=== PATIENT | male | born 1975 | race Caucasian/White ===

== ENCOUNTER 2021-12-11 12:57 | Day surgery (SDC) | payer OTHER, SELFPAY ==
[2021-11-08 09:47] VITALS: BMI 31.9
[2021-11-21 13:16] VITALS: BMI 31.9
[2021-12-11 13:15] VITALS: BP 137/103; PULSE 73; RESP 20; TEMP 36.7; O2SAT 100
[2021-12-11 13:24] VITALS: BMI 31.4
[2021-12-11] MEDS: LACTATED RINGERS 1,000 ML 150 ML IV CONT (13:33)
--- NOTE | 2021-12-11 13:44 | P.PNAN_ITS ---
Anes - Initial Pre Proc Eval Procedure: Operation Date: 12/11/21 14:30 Proposed Procedures p Diagnostic Colonoscopy - Trey Patten MD Date/Time: 12/11/21 13:44 Surgeon: Trey Patten MD Pre Op Diagnosis: Positive Cologard Patient Data Age: 46 Gender: M Height: 1.88 m Weight: 111 kg Last Vital Signs Temp 36.7 C 12/11/21 13:15 Pulse 73 12/11/21 13:15 Resp 20 12/11/21 13:15 BP 137/103 H 12/11/21 13:15 Pulse Ox 100 12/11/21 13:15 O2 Del Method Room Air 12/11/21 13:15 Allergies Allergy/AdvReac Type Severity Reaction Status Date / Time Sulfa (Sulfonamide Allergy Unknown Verified 12/11/21 13:22 Antibiotics) Home Medications Medication Instructions Recorded Confirmed Type sodium,potassium,mag sulfates 17.5 See Rx Instructions PO .COMPLEX 11/08/21 12/11/21 Rx gram-3.13 gram-1.6 gram oral soln #354 mL (Suprep Bowel Prep Kit) brimonidine 0.2 %-timolol 0.5 % 1 drp ophthalmic (eye) DAILY 11/21/21 12/11/21 History eye drops (Combigan) Patient hx anesthesia problems: none Family hx anesthesia problems: none Results Review: All pre-operative results and documents have been reviewed as part of the pre- operative evaluation. [facility] Past Medical History Medical History (Updated 12/11/21 @ 13:45 by Nic John MD) Obesity Surgical History Surgical History (Updated 12/11/21 @ 13:45 by Nic John MD) S/P inguinal hernia repair Social History Social History Smoking status: Never smoker Alcohol intake: never Drinks per week: 6 Alcohol use details: WEEKENDS ONLY Substance use: never Living arrangements: with family Spiritual care concerns: No Anes - Eval Final PreProcedure Day of Procedure 12/11/21 13:44 Patient weight: obese Heart: regular rate and rhythm Lungs: clear to auscultation Airway: Mallampati scale class II Neurological: alert and oriented Last oral intake: >/= 8 hours ASA classification: II Emergent: no Anesthetic plan: proceed Results Review: All pre-operative results and documents have been reviewed as part of the pre- operative evaluation. Informed Consent: The patient's anesthetic plan and its attendant risks and benefits were discussed with the patient/family/POA. Questions were solicited and answers provided to the satisfaction of the patient/family/POA.
--- NOTE | 2021-12-11 13:52 | HP_ITS ---
This document was recreated with the correct heading on 12/12/21. The original document was signed by Trey Patten MD 12/11/21 1359. Assessment and Plan Assessment and plan (1) Positive colorectal cancer screening using Cologuard test: Code(s): R19.5 - Other fecal abnormalities Status: Acute Assessment and Plan: Patient had a Cologuard test that was positive. For this reason colonoscopy will be a performed. This suggest he has a higher than average chance of having colon polyps. (2) Family history of colonic polyps: Code(s): Z83.71 - Family history of colonic polyps Status: Acute Assessment and Plan: Patient's family is significant both mother and father have had colon polyps. Suggest patient have follow-up colonoscopy at 5 year intervals in the future. GI Consult Note Consult date/time: 12/11/21 13:50 Reason for consult: Positive Cologuard test. HPI: Trey Multani is a 46 year old male Referred for colonoscopy because of positive Cologuard test. Patient reports his current weight appetite and bowel movements are normal. He denies abdominal pain. He has had no bleeding. Family history is significant both mother and father have had colon polyps. Patient presents today for colonoscopy. Review of Systems Review of Systems: Review of systems noncontributory. [facility] Past Medical History Medical History (Updated 12/11/21 @ 13:51 by Trey Patten MD) Obesity Surgical History Surgical History (Updated 12/11/21 @ 13:45 by Nic John MD) S/P inguinal hernia repair Social History Social History Smoking status: Never smoker Alcohol intake: never Drinks per week: 6 Alcohol use details: WEEKENDS ONLY Substance use: never Living arrangements: with family Spiritual care concerns: No Meds Home Medications and Allergies Home Medications Medication Instructions Recorded Confirmed Type sodium,potassium,mag sulfates 17.5 See Rx Instructions PO .COMPLEX 11/08/21 12/11/21 Rx gram-3.13 gram-1.6 gram oral soln #354 mL (Suprep Bowel Prep Kit) brimonidine 0.2 %-timolol 0.5 % 1 drp ophthalmic (eye) DAILY 11/21/21 12/11/21 History eye drops (Combigan) Allergies Allergy/AdvReac Type Severity Reaction Status Date / Time Sulfa (Sulfonamide Allergy Unknown Verified 12/11/21 13:22 Antibiotics) Vital Signs Vital Signs - 24 hr 12/11/21 13:15 Temperature 98.1 F Pulse Rate 73 Respiratory Rate 20 Blood Pressure 137/103 H Pulse Oximetry 100 Oxygen Delivery Room Air Exam Narrative: Physical exam reveals patient to be alert. Vital signs stable. HEENT exam is unremarkable. Patient is anicteric. Lungs are clear to auscultation and percussion. Heart is without murmur or extra sounds. Abdominal exam bowel sounds are present soft nontender with no organomegaly. Digital external rectal exam normal. This dictation may have been done utilizing a voice recognition system. Attempts have been made to correct errors. However, there may be uncorrected grammatical, spelling, and recognition errors present. Report Initialized date/time: Trye Patten MD 12/11/21 / 135 Electronically signed by: Trey Patten MD 12/11/21 1358 [facility]
[2021-12-11 14:55] VITALS: BP 116/84; PULSE 60; RESP 16; O2SAT 100
[2021-12-11 15:05] VITALS: BP 117/89; PULSE 64; RESP 16; O2SAT 100
--- NOTE | 2021-12-11 15:08 | WPDANESPN ---
Anes - Prog Note Post-Op Date/Time: 12/11/21 15:08 Cardiovascular status: normal Respiratory status: normal Airway patency: baseline Mental status: baseline Post-Op hydration status: normal Vital Signs: Last Vital Signs Temp 36.7 C 12/11/21 13:15 Pulse 73 12/11/21 13:15 Resp 20 12/11/21 13:15 BP 137/103 H 12/11/21 13:15 Pulse Ox 100 12/11/21 13:15 O2 Del Method Room Air 12/11/21 13:15 Pain Score (VAS): 0/10 I/O: Intake & Output 12/10/21 12/11/21 12/11/21 23:59 07:59 15:59 Intake Total 300 Balance 300 Patient Feedback: Patient satisfied with anesthetic care.
--- NOTE | 2021-12-11 15:13 | SUR.PHASEII ---
PT AWAKE AND ALERT. DRINKING AND EATING CRACKERS.
[2021-12-11 15:15] VITALS: BP 136/94; PULSE 56; RESP 16; O2SAT 100
--- NOTE | 2021-12-11 15:20 | SUR.PHASEII ---
PT AWAKE AND ALERT. DENIES PAIN. GETTING DRESSED. READY FOR DISCHARGE
== END 2021-12-11 15:25 | disposition home or self-care (01) ==
PROVIDERS: PCP Internal Medicine; Visit Provider Internal Medicine Gastroenterology
PROC: 0DJD8ZZ Inspection of Lower Intestinal Tract, Via Natural or Artificial Opening Endoscopic (ICD-10-PCS; CPT 45378; principal; 2021-12-11 14:30)
DX: Z83.71 Family history of colonic polyps (principal)
CPT/HCPCS: 45378

== ENCOUNTER 2023-05-14 12:23 | Outpatient (CLI) | payer OTHER, SELFPAY ==
--- NOTE | ~2023-05-14 | XR_ITS ---
Clinical Indication: Hypertension PA and lateral views of the chest: Comparison: 07/14/2017 Findings: The lungs are clear, without evidence of focal consolidation or pleural effusion. Cardiome diastinal silhouette is within normal limits. Bones and soft tissues are unremarkable. Impression: Normal chest. Reviewed, dictated and finalized at [facility]. [facility]ISER Impression: Normal chest.
[2023-05-14 12:36] LABS: Appearance Urine Clear (Clear); Basophils Absolute Auto 0.04 K/mm3 (0.00-0.10); Basophils Percent Auto 0.7 % (0.0-1.0); Bilirubin Urine Negative (Negative); Blood Urine Negative (Negative); Color Urine Light Yellow (Yellow); Eosinophils Absolute Auto 0.12 K/mm3 (0.02-0.50); Glucose Urine UA Negative (Negative); Hematocrit 46.2 % (40.0-54.0); Hemoglobin 15.7 g/dL (14.0-18.0); Immature Granulocyte Absolute 0.01 K/mm3 (0.00-0.00); Immature Granulocyte Percent A 0.2 % (0.0-0.0); Ketones Urine Negative (Negative); Leukocyte Esterase Ur Negative (Negative); Lymphocytes Absolute Auto 1.83 K/mm3 (1.10-4.50); Lymphocytes Percent Auto 31.2 % (18.0-42.0); Mean Corpuscular Hemoglobin 29.7 pg (27.0-31.0); Mean Corpuscular Volume 87.3 fL (78.0-102.0); Mean Platelet Volume 10.6 fl (8.7-11.0); Monocytes Absolute Auto 0.46 K/mm3 (0.10-0.90); Monocytes Percent Auto 7.8 % (2.0-11.0); Neutrophils Absolute Auto 3.4 K/mm3 (1.7-7.2); Neutrophils Percent Auto 58.1 % (50.0-70.0); Nitrate Urine Negative (Negative); Platelet Count Result 181 K/mm3 (150-420); Protein Urine Negative (Negative); Red Blood Count 5.29 M/mm3 (4.70-6.10); Red Cell Distribution Width 12.1 % (11.6-14.4); Specific Grav Ur <= 1.005 (1.010-1.020); Urobilinogen Urine 0.2 mg/dL (0.2-1.0); White Blood Count 5.9 K/mm3 (4.8-10.8); pH Urine 6.5 (5.0-8.0)
[2023-05-14 12:39] LABS: Add Urine Microscopic? NO
[2023-05-14 13:27] LABS: Alanine Aminotransferase 38 U/L (16-63); Albumin Level 4.2 g/dL (3.4-5.0); Alkaline Phosphatase 77 U/L (46-116); Anion Gap 10 mmol/L (8-16); Aspartate Amino Transferase 17 U/L (15-37); Bilirubin,Total 0.9 mg/dL (0.00-1.00); Blood Urea Nitrogen 11 mg/dL (7-18); Carbon Dioxide 29 mmol/L (21-32); Chloride 103 mmol/L (98-108); Cholesterol 243 mg/dL (0-200); Estimated Glomerular Filt Rate > 60; Glucose 98 mg/dL (70-99); HDL Direct 66 mg/dL (40-60); LDL Cholesterol Calculated 161 mg/dL (<130); Osmolality Calculated 293 mOsm/kg (285-295); Potassium 4.4 mmol/L (3.5-5.1); Sodium 142 mmol/L (136-145); Thyroid Stimulating Hormone 2.09 uIU/mL (0.36-3.74); Total Protein 7.1 g/dL (6.4-8.2); Triglycerides 81 mg/dL (0-150)
== END 2023-05-14 12:24 | disposition home or self-care (01) ==
LOC: CHSLAB 12:25
PROVIDERS: PCP Internal Medicine; Visit Provider Internal Medicine
DX: Z00.00 Encounter for general adult medical examination without abnormal findings (principal); I10 Essential (primary) hypertension
CPT/HCPCS: 36415; 71046; 80053; 80061; 81003; 84443; 85025

== ENCOUNTER 2024-10-20 07:11 | Outpatient (CLI) | payer OTHER, SELFPAY ==
--- OUTSIDE RECORDS SUMMARY | 2024-10-20 07:16 | XMS_ITS | Data Portability ---
Author Organization [place] [facility] Address [address] [facility] [place] [address] Assessment Encounter Date Assessment Date Assessment LastModified by Organization Details LastModified Time 09/29/2023 09/29/[address] Gibson, who concurs with assessment and plan. [email or web address] Not available 10/14/2023 13:31:53 Plan of Treatment Reminders Order Date Submit Date Provider Last Modified By Organization Details Last Modified Time Details Appointments None recorded. Lab CBC w/ auto diff 2024 025 [facility], [address] [place] [address], [facility] [address], [place], [address], 5 20:10:53 CMP, serum or plasma 2024 025 [facility], [address] [place] [address], [facility] [address], [place], [address], 5 20:10:51 lipid panel, serum 2024 025 [facility], [address] [place] [address], [facility] [address], [place], [address], 5 20:10:50 TSH + free T4, serum 2024 025 [facility], [address] [place] [address], [address], [place], [address], 5 20:10:49 vitamin D, 25-hydroxy , total, serum 2024 025 JUAN DEVINE, Ziyad Villalobosradha Gonzales, [address], [place], [address], 5 20:10:55 PSA, serum or plasma 2024 025 JUAN LANDRP, Ziyad Collierdanilo Gonzales, [address], [place], [address], 5 20:10:52 urinalysis , dipstick 2024 025 [email or web address] In-Office Order, Internal Use Only DO Not Attach Compendium DO Not Attach Compendium, Do Not Delete/merge, [id number] 5 14:21:08 CMP, serum or plasma 2023 024 JUAN LANDCAROL, Ziyad Collierdanilo Gonzales, [address], [place], [address], 4 13:11:18 lipid panel, serum 2023 024 JUAN LANDCAROL, Ziyad Collierdanilo Gonzales, [address], [place], [address], 4 13:11:17 HbA1c (hemoglobi n A1c), blood 2023 024 JUAN LANDCAROL, Ziyad Collierdanilo Gonzales, [address], [place], [address], 4 13:11:18 TSH + free T4, serum 2023 024 JUAN MOREAUYUMIKO, Ziyad Nae Gonzales, [address], [place], [address], 4 13:11:17 CBC w/ auto diff 2023 024 JUAN MOREAUYUMIKO, DungAbigail Gonzales, [address], [place], [address], 13:11:19 Referral None recorded. Procedures None recorded. Surgeries None recorded. Imaging None recorded. Medication Orders None recorded. Patient TargetsNo targets recorded. Patient Instructions Encounter Date Encounter Id Patient Instructions Last Modified By Organization Details Last Modified Time 09/29/2023 [id number] A healthy lifestyle: care instructions Not available 09/29/2023 11:47:04 06/21/2024 [id number] A healthy lifestyle: care instructions Not available 06/21/2024 15:23:49 Reason for Referral None Reported. Results Created Date Observation Date Name Description Value Unit Range Abnormal Flag Note LastModifiedBy Organization Detail LastModifiedTime 09/29/1909/30/2023 TSH+F REE T4 TSH 1.790 uIU/m L 0.450- 4.500 Not Available [facility] ([facility]) [address] [place], [address], 09/30/2023 13:11:16 09/29/19 24 09/30/2023 TSH+F REE T4 T4,free(dire ct) 1.43 NG/dL 0.82-1 .77 Not Available [facility] ([facility]) [address] [place], [address], 09/30/2023 13:11:16 09/29/19 24 09/30/2023 LIPID PANEL cholesterol, total 185 mg/dL 100-19 9 Not Available [facility] ([facility]) [address] [place], [address], 09/30/2023 13:11:17 09/29/19 24 09/30/2023 LIPID PANEL triglyceride s 135 mg/dL 0-149 Not Available [facility] ([facility]) [address] [place], [address], 09/30/2023 13:11:17 09/29/19 24 09/30/2023 LIPID PANEL HDL cholesterol 54 mg/dL >39 Not Available [facility] ([facility]) [address] [facility], [place], [address], 09/30/2023 13:11:17 09/29/19 24 09/30/2023 LIPID PANEL VLDL cholesterol marco 24 mg/dL 5-40 Not Available [facility] ([facility]) [address] [facility], [place], [address], 09/30/2023 13:11:17 09/29/19 24 09/30/2023 LIPID PANEL LDL chol calc ([facility]) 107 mg/dL 0-99 above high normal Not Available [facility] ([facility]) [address] [place], [address], 09/30/2023 13:11:17 09/29/19 24 09/30/2023 COMP. METAB OLIC PANEL (14) glucose 84 mg/dL 70-99 Not Available [facility] ([facility]) [address] [place], [address], 09/30/2023 13:11:17 09/29/19 24 09/30/2023 COMP. METAB OLIC PANEL (14) BUN 12 mg/dL 6-24 Not Available [facility] ([facility]) [address] [place], [address], 09/30/2023 13:11:17 09/29/19 24 09/30/2023 COMP. METAB OLIC PANEL (14) creatinine 1.04 mg/dL 0.76-1 .27 Not Available [facility] ([facility]) [address] [place], [address], 09/30/2023 13:11:17 09/29/19 24 09/30/2023 COMP. METAB OLIC PANEL (14) eGFR 89 mL/mi n/1.7 3 >59 Not Available [facility] ([facility]) [address] [place], [address], 09/30/2023 13:11:17 09/29/19 24 09/30/2023 COMP. METAB OLIC PANEL (14) BUN/creatini ne ratio 12 9-20 Not Available [facility] ([facility]) [address] [place], [address], 09/30/2023 13:11:17 09/29/19 24 09/30/2023 COMP. METAB OLIC PANEL (14) sodium 139 mmol/ L 134-14 4 Not Available [facility] ([facility]) [address] [place], [address], 09/30/2023 13:11:17 09/29/19 24 09/30/2023 COMP. METAB OLIC PANEL (14) potassium 4.4 mmol/ L 3.5-5. 2 Not Available [facility] ([facility]) [address] [facility] [place], [address], 09/30/2023 13:11:17 09/29/19 24 09/30/2023 COMP. METAB OLIC PANEL (14) chloride 101 mmol/ L 96-106 Not Available [facility] ([facility]) [address] [place], [address], 09/30/2023 13:11:17 09/29/19 24 09/30/2023 COMP. METAB OLIC PANEL (14) carbon dioxide, total 22 mmol/ L 20-29 Not Available [facility] ([facility]) [address] [place], [address], 09/30/2023 13:11:17 09/29/19 24 09/30/2023 COMP. METAB OLIC PANEL (14) calcium 9.4 mg/dL 8.7-10 .2 Not Available [facility] ([facility]) [address] [place], [address], 09/30/2023 13:11:17 09/29/19 24 09/30/2023 COMP. METAB OLIC PANEL (14) protein, total 6.6 g/dL 6.0-8. 5 Not Available [facility] ([facility]) [address] [facility] [place], [address], 09/30/2023 13:11:17 09/29/19 24 09/30/2023 COMP. METAB OLIC PANEL (14) albumin 4.5 g/dL 4.1-5. 1 Not Available [facility] ([facility]) [address] [place], [address], 09/30/2023 13:11:17 09/29/19 24 09/30/2023 COMP. METAB OLIC PANEL (14) globulin, total 2.1 g/dL 1.5-4. 5 Not Available [facility] ([facility]) [address] [place], [address], 09/30/2023 13:11:17 09/29/19 24 09/30/2023 COMP. METAB OLIC PANEL (14) bilirubin, total 0.8 mg/dL 0.0-1. 2 Not Available [facility] ([facility]) [address] [place], [address], 09/30/2023 13:11:17 09/29/19 24 09/30/2023 COMP. METAB OLIC PANEL (14) alkaline phosphatase 74 IU/L 44-121 Not Available [facility] ([facility]) [address] [place], [address], 09/30/2023 13:11:17 09/29/19 24 09/30/2023 COMP. METAB OLIC PANEL (14) AST (SGOT) 24 IU/L 0-40 Not Available [facility] ([facility]) [address] [place], [address], 09/30/2023 13:11:17 09/29/19 24 09/30/2023 COMP. METAB OLIC PANEL (14) ALT (SGPT) 20 IU/L 0-44 Not Available [facility] ([facility]) [address] [place], [address], 09/30/2023 13:11:17 09/29/1909/30/2023 HEMOG LOBIN A1C hemoglobin A1C 5.6 % 4.8-5. 6 Predi abete s: 5.7 - 6.4 Diabe alvarado: >6.4 Glyce cory contr ol for adult s with diabe alvarado: <7.0 Not Available [facility] ([facility]) [address] [facility], [place], [address], 09/30/2023 13:11:18 09/29/1909/30/2023 CBC WITH DIFFE RENTI AL/PL ATELE T WBC 5.0 x10e3 /uL 3.4-10 .8 Not Available [facility] ([facility]) [address] [facility] [place], [address], 09/30/2023 13:11:19 09/29/1909/30/2023 CBC WITH DIFFE RENTI AL/PL ATELE T RBC 5.02 x10e6 /uL 4.14-5 .80 Not Available [facility] ([facility]) [address] [facility] [place], [address], 09/30/2023 13:11:19 09/29/1909/30/2023 CBC WITH DIFFE RENTI AL/PL ATELE T hemoglobin 15.0 g/dL 13.0-1 7.7 Not Available [facility] ([facility]) [address] [facility] [place], [address], 09/30/2023 13:11:19 09/29/1909/30/2023 CBC WITH DIFFE RENTI AL/PL ATELE T hematocrit 45.9 % 37.5-5 1.0 Not Available [facility] ([facility]) [address] [facility] [place], [address], 09/30/2023 13:11:19 09/29/19 24 09/30/2023 CBC WITH DIFFE RENTI AL/PL ATELE T MCV 91 fL 79-97 Not Available [facility] ([facility]) [address] [place], [address], 09/30/2023 13:11:19 09/29/19 24 09/30/2023 CBC WITH DIFFE RENTI AL/PL ATELE T MCH 29.9 pg 26.6-3 3.0 Not Available [facility] ([facility]) [address] [facility] [place], [address], 09/30/2023 13:11:19 09/29/19 24 09/30/2023 CBC WITH DIFFE RENTI AL/PL ATELE T MCHC 32.7 g/dL 31.5-3 5.7 Not Available [facility] ([facility]) [address] [facility] [place], [address], 09/30/2023 13:11:19 09/29/19 24 09/30/2023 CBC WITH DIFFE RENTI AL/PL ATELE T RDW 13.1 % 11.6-1 5.4 Not Available [facility] ([facility]) [address] [place], [address], 09/30/2023 13:11:19 09/29/19 24 09/30/2023 CBC WITH DIFFE RENTI AL/PL ATELE T platelets 193 x10e3 /uL 150-45 0 Not Available [facility] ([facility]) [address] [place], [address], 09/30/2023 13:11:19 09/29/19 24 09/30/2023 CBC WITH DIFFE RENTI AL/PL ATELE T neutrophils 59 % notest ab. Not Available [facility] ([facility]) [address] [place], [address], 09/30/2023 13:11:19 09/29/19 24 09/30/2023 CBC WITH DIFFE RENTI AL/PL ATELE T lymphs 30 % notest ab. Not Available [facility] ([facility]) [address] [facility] [place], [address], 09/30/2023 13:11:19 09/29/19 24 09/30/2023 CBC WITH DIFFE RENTI AL/PL ATELE T monocytes 8 % notest ab. Not Available [facility] ([facility]) [address] [facility] [place], [address], 09/30/2023 13:11:19 09/29/19 24 09/30/2023 CBC WITH DIFFE RENTI AL/PL ATELE T eos 2 % notest ab. Not Available [facility] ([facility]) [address] [facility] [place], [address], 09/30/2023 13:11:19 09/29/19 24 09/30/2023 CBC WITH DIFFE RENTI AL/PL ATELE T basos 1 % notest ab. Not Available [facility] ([facility]) [address] [facility] [place], [address], 09/30/2023 13:11:19 09/29/19 24 09/30/2023 CBC WITH DIFFE RENTI AL/PL ATELE T neutrophils (absolute) 3.0 x10e3 /uL 1.4-7. 0 Not Available [facility] ([facility]) [address] [place], [address], 09/30/2023 13:11:19 09/29/1909/30/2023 CBC WITH DIFFE RENTI AL/PL ATELE T lymphs (absolute) 1.5 x10e3 /uL 0.7-3. 1 Not Available [facility] ([facility]) [address] [facility] [place], [address], 09/30/2023 13:11:19 09/29/19 24 09/30/2023 CBC WITH DIFFE RENTI AL/PL ATELE T monocytes(ab solute) 0.4 x10e3 /uL 0.1-0. 9 Not Available [facility] ([facility]) [address] [facility] [place], [address], 09/30/2023 13:11:19 09/29/19 24 09/30/2023 CBC WITH DIFFE RENTI AL/PL ATELE T eos (absolute) 0.1 x10e3 /uL 0.0-0. 4 Not Available [facility] ([facility]) [address] [facility] [place], [address], 09/30/2023 13:11:19 09/29/19 24 09/30/2023 CBC WITH DIFFE RENTI AL/PL ATELE T baso (absolute) 0.0 x10e3 /uL 0.0-0. 2 Not Available [facility] ([facility]) [address] [facility] [place], [address], 09/30/2023 13:11:19 09/29/1909/30/2023 CBC WITH DIFFE RENTI AL/PL ATELE T immature granulocytes 0 % notest ab. Not Available [facility] ([facility]) [address] [facility] [place], [address], 09/30/2023 13:11:19 09/29/19 24 09/30/2023 CBC WITH DIFFE RENTI AL/PL ATELE T immature grans (abs) 0.0 x10e3 /uL 0.0-0. 1 Not Available [facility] ([facility]) [address] [place], [address], 09/30/2023 13:11:19 09/29/1909/30/2023 VITAM IN D, 25-HY DROXY vitamin D, 25-hydroxy 43.4 NG/mL 30.0-1 00.0 Vitam in D defic iency has been defin ed by the Insti tute of Medic ine and an Endoc rine Socie ty pract ice guide line as a level of serum 25-OH vitam in D less than 20 ng/mL (1,2) . The Endoc rine Socie ty went on to furth er defin e vitam in D insuf ficie ncy as a level betwe en 21 and 29 ng/mL (2). 1. IOM (Inst itute of Medic ine). 2010. Dieta ry refer ence intak es for calci um and D. Angelika patrick [place]: The [facility] . 2. Nisha bassett MF, aZna ey [place], Laury off-F errar i WYNNE, et al. Evalu ation , treat ment, and preve ntion of vitam in D defic iency : an Endoc rine Socie ty clini marco pract ice guide line. JCEM. 2010; 96(7) :1911 -30. Not Available [facility] ([facility]) [address] [place], [address], 09/30/2023 13:11:19 06/22/19 25 06/22/2024 TSH+F REE T4 TSH 1.290 uIU/m L 0.450- 4.500 Not Available [facility] ([facility]) [address] [place], [address], 06/22/2024 20:10:48 06/22/19 25 06/22/2024 TSH+F REE T4 T4,free(dire ct) 1.47 NG/dL 0.82-1 .77 Not Available [facility] ([facility]) [address] [place], [address], 06/22/2024 20:10:48 06/22/19 25 06/22/2024 LIPID PANEL cholesterol, total 194 mg/dL 100-19 9 Not Available [facility] ([facility]) [address] [place], [address], 06/22/2024 20:10:50 06/22/19 25 06/22/2024 LIPID PANEL triglyceride s 106 mg/dL 0-149 Not Available [facility] ([facility]) [address] [place], [address], 06/22/2024 20:10:50 06/22/19 25 06/22/2024 LIPID PANEL HDL cholesterol 55 mg/dL >39 Not Available [facility] ([facility]) [address] [place], [address], 06/22/2024 20:10:50 06/22/19 25 06/22/2024 LIPID PANEL VLDL cholesterol marco 19 mg/dL 5-40 Not Available [facility] ([facility]) [address] [place], [address], 06/22/2024 20:10:50 06/22/19 25 06/22/2024 LIPID PANEL LDL chol calc ([facility]) 120 mg/dL 0-99 above high normal Not Available [facility] ([facility]) [address] [place], [address], 06/22/2024 20:10:50 06/22/19 25 06/22/2024 COMP. METAB OLIC PANEL (14) glucose 86 mg/dL 70-99 Not Available [facility] ([facility]) [address] [place], [address], 06/22/2024 20:10:51 06/22/19 25 06/22/2024 COMP. METAB OLIC PANEL (14) BUN 10 mg/dL 6-24 Not Available [facility] ([facility]) [address] [place], [address], 06/22/2024 20:10:51 06/22/19 25 06/22/2024 COMP. METAB OLIC PANEL (14) creatinine 0.97 mg/dL 0.76-1 .27 Not Available [facility] ([facility]) [address] [place], [address], 06/22/2024 20:10:51 06/22/19 25 06/22/2024 COMP. METAB OLIC PANEL (14) eGFR 96 mL/mi n/1.7 3 >59 Not Available [facility] ([facility]) [address] [facility] [place], [address], 06/22/2024 20:10:51 06/22/19 25 06/22/2024 COMP. METAB OLIC PANEL (14) BUN/creatini ne ratio 10 9-20 Not Available [facility] ([facility]) [address] [facility] [place], [address], 06/22/2024 20:10:51 06/22/19 25 06/22/2024 COMP. METAB OLIC PANEL (14) sodium 140 mmol/ L 134-14 4 Not Available [facility] ([facility]) [address] [facility] [place], [address], 06/22/2024 20:10:51 06/22/19 25 06/22/2024 COMP. METAB OLIC PANEL (14) potassium 4.3 mmol/ L 3.5-5. 2 Not Available [facility] ([facility]) [address] [facility] [place], [address], 06/22/2024 20:10:51 06/22/19 25 06/22/2024 COMP. METAB OLIC PANEL (14) chloride 103 mmol/ L 96-106 Not Available [facility] ([facility]) [address] [facility] [place], [address], 06/22/2024 20:10:51 06/22/19 25 06/22/2024 COMP. METAB OLIC PANEL (14) carbon dioxide, total 25 mmol/ L 20-29 Not Available [facility] ([facility]) [address] [facility] [place], [address], 06/22/2024 20:10:51 06/22/19 25 06/22/2024 COMP. METAB OLIC PANEL (14) calcium 9.1 mg/dL 8.7-10 .2 Not Available [facility] ([facility]) [address] [facility] [place], [address], 06/22/2024 20:10:51 06/22/19 25 06/22/2024 COMP. METAB OLIC PANEL (14) protein, total 6.7 g/dL 6.0-8. 5 Not Available [facility] ([facility]) [address] [facility] [place], [address], 06/22/2024 20:10:51 06/22/19 25 06/22/2024 COMP. METAB OLIC PANEL (14) albumin 4.5 g/dL 4.1-5. 1 Not Available [facility] ([facility]) [address] [facility] [place], [address], 06/22/2024 20:10:51 06/22/19 25 06/22/2024 COMP. METAB OLIC PANEL (14) globulin, total 2.2 g/dL 1.5-4. 5 Not Available [facility] ([facility]) [address] [facility] [place], [address], 06/22/2024 20:10:51 06/22/19 25 06/22/2024 COMP. METAB OLIC PANEL (14) bilirubin, total 0.7 mg/dL 0.0-1. 2 Not Available [facility] ([facility]) [address] [facility] [place], [address], 06/22/2024 20:10:51 06/22/19 25 06/22/2024 COMP. METAB OLIC PANEL (14) alkaline phosphatase 79 IU/L 44-121 Not Available [facility] ([facility]) [address] [facility] [place], [address], 06/22/2024 20:10:51 06/22/19 25 06/22/2024 COMP. METAB OLIC PANEL (14) AST (SGOT) 20 IU/L 0-40 Not Available [facility] ([facility]) [address] [facility] [place], [address], 06/22/2024 20:10:51 06/22/19 25 06/22/2024 COMP. METAB OLIC PANEL (14) ALT (SGPT) 25 IU/L 0-44 Not Available [facility] ([facility]) [address] [place], [address], 06/22/2024 20:10:51 06/22/19 25 06/22/2024 UA/M W/RFL X CULTU RE, ROUTI NE specific gravity - Test not perfo rmed. No urine speci men recei annamaria. Not Available [facility] ([facility]) [address] [facility] [place], [address], 06/22/2024 20:10:52 06/22/19 25 06/22/2024 UA/M W/RFL X CULTU RE, ROUTI NE pH - Test not perfo rmed Not Available [facility] ([facility]) [address] [place], [address], 06/22/2024 20:10:52 06/22/19 25 06/22/2024 UA/M W/RFL X CULTU RE, ROUTI NE protein - Test not perfo rmed Not Available [facility] ([facility]) [address] [place], [address], 06/22/2024 20:10:52 06/22/19 25 06/22/2024 UA/M W/RFL X CULTU RE, ROUTI NE glucose - Test not perfo rmed Not Available [facility] ([facility]) [address] [place], [address], 06/22/2024 20:10:52 06/22/19 25 06/22/2024 UA/M W/RFL X CULTU RE, ROUTI NE ketones - Test not perfo rmed Not Available [facility] ([facility]) [address] [place], [address], 06/22/2024 20:10:52 06/22/19 25 06/21/2024 PSA TOTAL (REFL EX TO FREE) reflex criteria COMMEN T The perce nt free PSA is perfo rmed on a refle x basis only when the total PSA is betwe en 4.0 and 10.0 ng/mL . Not Available [facility] ([facility]) [address] [facility] [place], [address], 06/22/2024 20:10:52 06/22/19 25 06/22/2024 PSA TOTAL (REFL EX TO FREE) prostate specific Ag 1.1 NG/mL 0.0-4. 0 Dalton ECLIA metho dolog y. Accor ding to the Ameri can [employer]rolo g[employer] Ass[employer] iatio n, Serum PSA shoul d decre ase and remai n at undet ectab le level s after radic al prost atect marleni. The AUA defin es bioch emica l recur rence as an initi al PSA value 0.2 ng/mL or great er follo wed by a subse quent confi rmato ry PSA value 0.2 ng/mL or great er. Value s obtai fabiola with diffe rent assay metho ds or kits canno t be used inter gu eably . Resul ts canno t be inter prete d as absol [place] evide nce of the prese nce or absen ce of katey ruiz se. Not Available [facility] ([facility]) [address] [facility] [place], [address], 06/22/2024 20:10:52 06/22/19 25 06/22/2024 CBC WITH DIFFE RENTI AL/PL ATELE T WBC 5.1 x10e3 /uL 3.4-10 .8 Not Available [facility] ([facility]) [address] [place], [address], 06/22/2024 20:10:53 06/22/19 25 06/22/2024 CBC WITH DIFFE RENTI AL/PL ATELE T RBC 4.83 x10e6 /uL 4.14-5 .80 Not Available [facility] ([facility]) [address] [place], [address], 06/22/2024 20:10:53 06/22/19 25 06/22/2024 CBC WITH DIFFE RENTI AL/PL ATELE T hemoglobin 15.0 g/dL 13.0-1 7.7 Not Available [facility] ([facility]) [address] [facility] [place], [address], 06/22/2024 20:10:53 06/22/19 25 06/22/2024 CBC WITH DIFFE RENTI AL/PL ATELE T hematocrit 43.0 % 37.5-5 1.0 Not Available [facility] ([facility]) [address] [place], [address], 06/22/2024 20:10:53 06/22/19 25 06/22/2024 CBC WITH DIFFE RENTI AL/PL ATELE T MCV 89 fL 79-97 Not Available [facility] ([facility]) [address] [facility] [place], [address], 06/22/2024 20:10:53 06/22/19 25 06/22/2024 CBC WITH DIFFE RENTI AL/PL ATELE T MCH 31.1 pg 26.6-3 3.0 Not Available [facility] ([facility]) [address] [place], [address], 06/22/2024 20:10:53 06/22/19 25 06/22/2024 CBC WITH DIFFE RENTI AL/PL ATELE T MCHC 34.9 g/dL 31.5-3 5.7 Not Available [facility] ([facility]) [address] [place], [address], 06/22/2024 20:10:53 06/22/19 25 06/22/2024 CBC WITH DIFFE RENTI AL/PL ATELE T RDW 12.5 % 11.6-1 5.4 Not Available [facility] ([facility]) [address] [place], [address], 06/22/2024 20:10:53 06/22/19 25 06/22/2024 CBC WITH DIFFE RENTI AL/PL ATELE T platelets 167 x10e3 /uL 150-45 0 Not Available [facility] ([facility]) [address] [facility], [place], [id number], 06/22/2024 20:10:53 06/22/19 25 06/22/2024 CBC WITH DIFFE RENTI AL/PL ATELE T neutrophils 53 % notest ab. Not Available [facility] ([facility]) [address] [facility], [place], [address], 06/22/2024 20:10:53 06/22/19 25 06/22/2024 CBC WITH DIFFE RENTI AL/PL ATELE T lymphs 35 % notest ab. Not Available [facility] ([facility]) [address] [facility], [place], [address], 06/22/2024 20:10:53 06/22/19 25 06/22/2024 CBC WITH DIFFE RENTI AL/PL ATELE T monocytes 9 % notest ab. Not Available [facility] ([facility]) [address] [facility], [place], [address], 06/22/2024 20:10:53 06/22/19 25 06/22/2024 CBC WITH DIFFE RENTI AL/PL ATELE T eos 2 % notest ab. Not Available [facility] ([facility]) [address] [facility], [place], [address], 06/22/2024 20:10:53 06/22/19 25 06/22/2024 CBC WITH DIFFE RENTI AL/PL ATELE T basos 1 % notest ab. Not Available [facility] ([facility]) [address] [facility], [place], [address], 06/22/2024 20:10:53 06/22/19 25 06/22/2024 CBC WITH DIFFE RENTI AL/PL ATELE T neutrophils (absolute) 2.7 x10e3 /uL 1.4-7. 0 Not Available [facility] ([facility]) [address] [place], [address], 06/22/2024 20:10:53 06/22/19 25 06/22/2024 CBC WITH DIFFE RENTI AL/PL ATELE T lymphs (absolute) 1.8 x10e3 /uL 0.7-3. 1 Not Available [facility] ([facility]) [address] [place], [address], 06/22/2024 20:10:53 06/22/19 25 06/22/2024 CBC WITH DIFFE RENTI AL/PL ATELE T monocytes(ab solute) 0.4 x10e3 /uL 0.1-0. 9 Not Available [facility] ([facility]) [address] [facility], [place], [address], 06/22/2024 20:10:53 06/22/19 25 06/22/2024 CBC WITH DIFFE RENTI AL/PL ATELE T eos (absolute) 0.1 x10e3 /uL 0.0-0. 4 Not Available [facility] ([facility]) [address] [place], [address], 06/22/2024 20:10:53 06/22/19 25 06/22/2024 CBC WITH DIFFE RENTI AL/PL ATELE T baso (absolute) 0.0 x10e3 /uL 0.0-0. 2 Not Available [facility] ([facility]) [address] [place], [address], 06/22/2024 20:10:53 06/22/19 25 06/22/2024 CBC WITH DIFFE RENTI AL/PL ATELE T immature granulocytes 0 % notest ab. Not Available [facility] ([facility]) [address] [place], [address], 06/22/2024 20:10:53 06/22/19 25 06/22/2024 CBC WITH DIFFE RENTI AL/PL ATELE T immature grans (abs) 0.0 x10e3 /uL 0.0-0. 1 Not Available [facility] ([facility]) [address] [facility], [place], [address], 06/22/2024 20:10:53 06/22/19 25 06/22/2024 VITAM IN D, 25-HY DROXY vitamin D, 25-hydroxy 37.5 NG/mL 30.0-1 00.0 Vitam in D defic iency has been defin ed by the Insti tute of Medic ine and an Endoc rine Socie ty pract ice guide line as a level of serum 25-OH vitam in D less than 20 ng/mL (1,2) . The Endoc rine Socie ty went on to furth er defin e vitam in D insuf ficie ncy as a level betwe en 21 and 29 ng/mL (2). 1. IOM (Inst itute of Medic ine). 2010. Dieta ry refer ence intak es for calci um and D. Angelika patrick [place]: [facility] . 2. Nisha bassett MF, Zana moraes [place], Laury off-F errar i WYNNE, et al. Evalu ation , treat ment, and preve ntion of vitam in D defic iency : an Endoc rine Socie ty clini marco pract ice guide line. JCEM. 2010; 96(7) :1911 -30. Not Available [facility] ([facility]) [address] [facility], [place], [address], 06/22/2024 20:10:54 06/22/19 25 06/21/2024 urina lysis , dipst ick Leukocytes Negati ve Not Available In-Office Order Internal Use Only DO Not Attach Compendium DO Not Attach Compendium, Do Not Delete/merge, [id number] 06/21/2024 14:20:30 06/22/19 25 06/21/2024 urina lysis , dipst ick Nitrite negati ve Not Available In-Office Order Internal Use Only DO Not Attach Compendium DO Not Attach Compendium, Do Not Delete/merge, [id number] 06/21/2024 14:20:30 06/22/19 25 06/21/2024 urina lysis , dipst ick Urobilinogen .2 Not Available In-Of fice Order Internal Use Only DO Not Attach Compendium DO Not Attach Compendium, Do Not Delete/merge, [id number] 06/21/2024 14:20:30 06/22/19 25 06/21/2024 urina lysis , dipst ick Protein 30 Not Available In-Office Order Internal Use Only DO Not Attach Compendium DO Not Attach Compendium, Do Not Delete/merge, [id number] 06/21/2024 14:20:30 06/22/19 25 06/21/2024 urina lysis , dipst ick pH 6.0 Not Available In-Office Order Internal Use Only DO Not Attach Compendium DO Not Attach Compendium, Do Not Delete/merge, [facility] 06/21/2024 14:20:30 06/22/19 25 06/21/2024 urina lysis , dipst ick Blood Negati ve Not Available In-Office Order Internal Use Only DO Not Attach Compendium DO Not Attach Compendium, Do Not Delete/merge, [facility] 06/21/2024 14:20:30 06/22/19 25 06/21/2024 urina lysis , dipst ick Specific [place] 1.005 Not Available In-Off ice Order Internal Use Only DO Not Attach Compendium DO Not Attach Compendium, Do Not Delete/merge, [facility] 06/21/2024 14:20:30 06/22/19 25 06/21/2024 urina lysis , dipst ick Ketone Negati ve Not Available In-Office Order Internal Use Only DO Not Attach Compendium DO Not Attach Compendium, Do Not Delete/merge, [facility] 06/21/2024 14:20:30 06/22/19 25 06/21/2024 urina lysis , dipst ick Bilirubin Negati ve Not Available In-Office Order Internal Use Only DO Not Attach Compendium DO Not Attach Compendium, Do Not Delete/merge, [id number] 06/21/2024 14:20:30 06/22/19 25 06/21/2024 urina lysis , dipst ick Glucose Negati ve Not Available In-Office Order Internal Use Only DO Not Attach Compendium DO Not Attach Compendium, Do Not Delete/merge, [id number] 06/21/2024 14:20:30 06/22/19 25 06/21/2024 urina lysis , dipst ick Appearance Clear Not Available In-Offi ce Order Internal Use Only DO Not Attach Compendium DO Not Attach Compendium, Do Not Delete/merge, [id number] 06/21/2024 14:20:30 06/22/19 25 06/21/2024 urina lysis , dipst ick Color Yellow Not Available In-Office Order Internal Use Only DO Not Attach Compendium DO Not Attach Compendium, Do Not Delete/merge, [id number] 06/21/2024 14:20:30 Result Notes None recorded. Problems No Known Problems Procedures Surgical History Date Name Laterality Status Provider Name and Address Organization Details Recorded Time hernia repair completed Cyndi Kelly MA [place] - [facility] 09/29/2023 11:07:06 Imaging Results None recorded. Procedure Notes None recorded. Medical Equipment None Reported. Allergies Allergen ID Allergen Name Allergen Category Reaction Reaction Severity Criticality Documentation Date Start Date Code Code System Note Provider Name and Address Organization Details Recorded Time 690387 Substance with sulfonami de structure and antibacte rial mechanism of action (substanc e) medicatio n Not available Not available Not available 02/19/2022 [id number] SNNELSON Oconnell NP Attn: Krista neal,[address] [facility], [place], [address], [facility] 2 11:30:49 Medications Name Sig Start Date Stop Date Status Note LastModified by Organization Details LastModified Time ketorolac 0.5 % eye drops INSTILL 1 DROP IN RIGHT EYE FOUR TIMES DAILY FOR 4 DAYS 06/21 completed Not Available Not Available Not Available timolol maleate 0.5 % eye drops INSTILL 1 DROP IN BOTH EYES EVERY MORNING active Not Available Not Available No t Available brimonidine 0.2 %-timolol 0.5 % eye drops 06/21 completed Not Available Not Available Not Available Vitals Date Recorded Body height Body mass index (BMI) Body weight Oxygen saturation Oxygen saturation in Arterial blood by Pulse oximetry Heart rate Respiratory rate Body temperature Systolic And Diastolic Provider Name and Address Organization Details Last Updated DateTime 5 187.96 cm 32.7 kg/m2 049235. 05 g 99 % 99 % 97 /min 18 /min 97.6 [degF] 130/72 mm[Hg] Cyndi Kelly MA [facility] 5 13:59:48 Date Recorded Body temperature Respiratory rate Heart rate Oxygen saturation Oxygen saturation in Arterial blood by Pulse oximetry Body height Body mass index (BMI) Body weight Systolic And Diastolic Provider Name and Address Organization Details Last Updated DateTime 4 97.9 [degF] 17 /min 57 /min 99 % 99 % 187.96 cm 32.6 kg/m2 729085. 46 g 128/72 mm[Hg] Cyndi Kelly MA [facility] 4 11:04:17 Social History Question Answer Notes LastModified by [employer] Details LastModified Time Tobacco Smoking Status Never Smoker KAILEE Oconnell NP Attn: [facility],[address] [place], [address], [facility] 02/19/2022 11:31:29 What Is Your Level Of Caffeine Consumption? Occasional Information not available 09/29/2023 Are There Any Guns Present In Your Home? No Information not available 09/29/2023 What Was The Date Of Your Most Recent Tobacco Screening? 06/21/2024 Information not available 06/21/2024 Do You Have Smoke And Carbon Monoxide Detectors In Your Home? Yes Information not available 09/29/2023 Are You Passively Exposed To Smoke? No Information not available 09/29/2023 Do You Use Sunscreen Routinely? Yes Information not available 09/29/2023 Has Tobacco Cessation Counseling Been Provided? No Information not available 09/29/2023 Sex: Unknown Functional Status Question Answer Note LastModified by [employer] Details LastModified Time Do you use any illicit or recreational drugs? No Information not available 09/29/2023 What is your level of alcohol consumption? Occasional Information not available 09/29/2023 Mental Status None recorded. Family History Relationship Description Onset Age of this Age Resolved Age Notes LastModified by Organization Details LastModified Time Father Hypertensive disorder [email or web address] Not available 09/28 11:05:07 Mother Hypercholest erolemia [email or web address] Not available 09/28 11:05:36 Notes:both parents have hype rtensive and hypercholesterolemia Medical History No medical history recorded. Immunizations Vaccine Type Date Status Note Provider Nam e and Address Organization Details Recorded Time MMR 7 completed KAILEE Oconnell NP Attn: [employer],[address] [place], [place], [address] [place] [address], [place] [facility] 06/21/2024 15:24:00 MMR 6 completed KAILEE Oconnell NP Attn: [employer] [place], [place], [address] [place] [address], [place] [facility] 06/21/2024 15:24:00 COVID-19, mRNA, LNP-S, PF, 30 mcg/0.3 mL dose 1 completed KAILEE Oconnell NP Attn: [employer],[address] [place], [place], [address] [place] [address], [place] [facility] 06/21/2024 15:24:00 COVID-19, mRNA, LNP-S, PF, 30 mcg/0.3 mL dose 1 completed KAILEE Oconnell NP Attn: [employer],[address] [place], [place], [address] [place] [address], [place] [facility] 06/21/2024 15:24:00 COVID-19, mRNA, LNP-S, PF, 30 mcg/0.3 mL dose 1 kaden Oconnell NP Attn: [employer],[address] [place], [place], [address] [place] [address], [place] [facility] 06/21/2024 15:24:00 DT (pediatric) 9 completed KAILEE Oconnell NP Attn: [employer],[address] [facility], [place], [address], [place] [facility] 06/21/2024 15:24:00 rubella 5 completed KAILEE Oconnell NP Attn: [employer],[address] [facility], [place], [address], [place] [facility] 06/21/2024 15:24:00 Tdap 7 kaden Oconnell NP Attn: [employer],[address] [facility], [place], [address], [place] [facility] 06/21/2024 15:24:00 Influenza, split virus, trivalent, preservative 1 kaden Oconnell NP Attn: [employer],[address] [facility], [place], [address], [place] [facility] 06/21/2024 15:24:00 Td (adult), 2 Lf tetanus toxoid, preservative free, adsorbed 9 completed KAILEE Oconnell NP Attn: [employer],[address] [facility], [place], [address], [place] [facility] 06/21/2024 15:24:01 Hep B, adult 7 kaden Oconnell NP Attn: [employer],[address] [facility], [place], [address], [place] [facility] 06/21/2024 15:24:01 Hep B, adult 7 kaden Oconnell NP Attn: [employer],[address] [facility], [place], [address], [place] [facility] 06/21/2024 15:24:01 meningococcal MCV4P 7 kaden Oconnell NP Attn: [employer],[address] [facility], [place], [address], [place] [facility] 06/21/2024 15:24:01 DTaP 5 completed KAILEE Oconnell NP Attn: [employer],[address] [facility], [place], [address], [place] [facility] 06/21/2024 15:24:01 Influenza, split virus, quadrivalent, PF 0 completed KAILEE Oconnell NP Attn: [employer],[address] [facility], [place], [address], [place] [facility] 06/21/2024 15:24:01 Influenza, split virus, quadrivalent, PF 2 completed KAILEE Oconnell NP Attn: [employer],[address] [facility], [place], [address], [place] [facility] 03/05/2022 14:05:54 Influenza, split virus, quadrivalent, PF 3 completed [place] - [facility] 01/21/2023 10:46:25 Influenza, split virus, trivalent, PF 4 completed KAILEE Oconnell NP Attn: [employer],[address] [facility], [place], [address], [facility] 01/12/2024 13:38:34 Tdap 5 completed KAILEE Oconnell NP Attn: [employer],[address] [facility], [place], [address], [facility] 06/21/2024 15:39:18 Past Encounters Encounter ID Performer Location Encounter Start Date Encounter Closed Date Diagnosis/Indication Diagnosis SNOMED-CT Code Diagnosis ICD10 Code Diagnosis Note [id number] KAILEE Oconnell NP [facility] [address] [facility] [place] [address] 02/19/2022 11:19:30 03/06/2022 20:48:40 Administration of influenza vaccine [id number] Z23 [id number] [facility] [address] [place] [address] 01/07/2023 14:31:06 01/15/2023 14:36:45 Administration of influenza vaccine [id number] Z23 [id number] [facility] [address] [place] [address] 09/29/2023 10:59:08 09/29/2023 11:35:08 Adult health examination 718625051 Z00.00 -Get lab work done as discussed. We will call you with the results-sa fety discussed with patient-Pt immunizati ons utd. he will return for flu shot-Will make eye apt. as he wears glasses-Di et and exercise discussed- Will make dental apt. Obesity 882621527 E66.8 [id number] Piyush Gibson MD [facility] [address] [place] [address] 01/12/2024 12:16:33 01/12/2024 12:54:47 Administration of influenza vaccine [id number] Z23 [id number] KAILEE Oconnell NP [facility] [address] [place] [address] 06/21/2024 13:53:39 06/21/2024 16:36:09 Adult health examination 559006687 Z00.00 -Get lab work done as discussed. We will call you with the results-sa fety discussed with patient-Pt immunizati ons utd.-Will make eye apt.-Diet and exercise discussed- Will make dental apt. Active or passive immunization 369768789 Z23 -Can give tylenol for fever or pain.-Can use cool washcloth to area Obesity 822859406 E66.9 Stress 67808789 Z73.3 -Different treatments discussed. Reports will continue to try lifestyle modificati ons first.-Rep orts is daily exercising to improve stress.-Wi ll f/u if no improvemen t Health Concerns Section Related Observation LastModified by Organization Detai ls LastModified Time None Recorded Concern Status LastModified by Organization Details LastModified Time None Recorded Advance Directives Directive None Recorded Payers Insurance Date Sequence Insurance Name Policy Number Policy Ray Covered Member ID Ray Member ID Guarantor Name 07/05/2024 1 [facility] [id number] Trey Multani [id number] Trey Multani Notes Date Note Type Note Provider Name and Address Organization Details Recorded Time 09/29/2023 text/html Pt here today fo r wellness exam for insurance. No concerns or complaints. Last colonoscopy was last year. Normal. Bikes 10 miles daily and lifts weights. Eats a normal diet. Has opthalmologist that he sees regularly due to family history of glaucoma.Has a dentist with normal dental visits. Has a primary. No pmh other than increased eye pressures, which he takes timolol for. Piyush Gibson MD Attn: [employer],[address] [facility], [place], [address], [facility] 10/14/2023 13:32:02 06/21/2024 text/html Pt into school b [facility] for adult annual exam. No concerns or complaints. No PMH. No medications daily except eye drops. Bike rides 5 times per week. Colonoscopy 3 years ago. F/u in 2 years. Takes timolol eye drops and is followed by opthamology for early glaucoma. Has PCP. Feels increased stress from job. Has been riding bike to cope. Feels it is improving. Has restless sleep and mind. KAILEE Oconnell NP Attn: Accounting,[address] [facility], [place], [address], [facility] 06/21/2024 15:41:07
--- OUTSIDE RECORDS SUMMARY | 2024-10-20 07:16 | XMS_ITS | Clinical Summary ---
Author Organization [facility] Address [address] [place] [address] Care Team Providers Care Cloud Engineer Name Role Phone Paola Ordoñez Primary Care Provider [phone] [phone] Allergies Active Allergy Reactions Criticality Noted Date Comments Sulfa (Sulfonamide Antibiotics) Medications fexofenadine-ps eudoephedrine (ELINOR-D 24) 180-240 mg per 24 hr tablet Take 1 tablet by mouth daily. Active montelukast (SINGULAIR) 10 mg tablet Take 10 mg by mouth nightly. Active omega-3 fatty acids (FISH OIL) 500 mg capsule Take 2 tablet/capsule by mouth daily. Active fluticasone (FLONASE) 50 mcg/actuation nasal spray as needed. 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 Effect of timolol Start latanoprost daily OD Has appointment with Dr. 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/2024 10:24 PM CAD DEVELOPER): Intraocular pressure (IOP) acceptable status post (s/p) SLT right eye (OD) Defer SLT left eye (OS) for now with no evidence of glaucoma (PDS) Cont Timolol q AM F/U 3-4 months with intraocular pressure (IOP) check Note to Dr. Dodd Assessment & Plan (11/05/2023 9:25 PM CDT): Referred by Dr Dodd for elevated intraocular pressure (IOP) and worsening RNFL - Currently on Timolol QHS OD, Combigan QAM OU - did not tolerate Combigan bid due to headaches - FH: Mother with pigmentary glaucoma- severe - intraocular pressure (IOP) 18/21 today - Reese visual field (HVF) with early sup nasal step right eye (OD) with corresponding inf thinning on RNFL c/w 2017 Discussed SLT vs additional meds. Right eye (OD) first, possibly treat 180 degrees only to minimize risk of intraocular pressure (IOP) spike Recommend SLT- discussed R/B/A and pt agrees Continue Combigan QAM OU - hold PM timolol Age-related nuclear cataract of both eyes 2017 Assessment & Plan (11/05/2023 2:55 PM CDT): NVS Observe Assessment & Plan (09/10/2017 9:39 AM CDT): Observe Pigment dispersion syndrome of left eye 12/22/19 15 Assessment & Plan (07/28/2024 10:20 PM CDT): intraocular pressure (IOP) and optic nerve (ON) RNFL unchanged. Intraocular pressure (IOP) trending higher today both eyes (OU) DC timolol- ? effect Assessment & Plan (11/05/2023 9:25 PM CDT): intraocular pressure (IOP) and optic nerve (ON) unchanged. OCT nl nerve fiber layer (NFL) Would pursue SLT if successful right eye (OD) Assessment & Plan (09/10/2017 9:39 AM CDT): intraocular pressure (IOP) and optic nerve (ON) unchanged. OCT nl NFL Glaucoma suspect 12/21/2014 Dysuria 10/22/2011 Urge incontinence of urine 10/22/2011 Urinary tract infection 10/22/2011 Resolved Problems Problem Noted Date Diagnosed Date Resolved Date Secondary open-angle glaucom a, right, mild stage 11/05/2023 11/05/2023 Assessment & Plan (11/05/2023 2:21 PM CDT): Referred by Dr Dodd for worsening OCT-RNFL FH: + Pigment dispersion glaucoma in mother Currently on Timolol QHS OD, Combigan QAM both eyes (OU) OCT RNFL with inferior thinning right eye (OD); normal left eye (OS) Reese visual field (HVF) with corresponding mild superior nasal step right eye (OD); essentially normal OS Recommend SLT both eyes (OU) right eye (OD) followed by OS Encounters Date Type Department Care Team Description 10/14/2024 Telephone [facility] Ophthalmology [address], [address] [place] [address] Jo Ann Witt MD 07/28/2024 1:45 PM CDT Office Visit [facility] Ophthalmology [facility] [place] [address] Jo Ann Witt MD Pigmentary glaucoma, right eye, mild stage (Primary Dx); Pigment dispersion syndrome of left eye 07/28/2024 1:10 PM CDT Imaging Exam [facility] Ophthalmology [address] [place] [address] Outpatient Health [address] [place] [phone] Pigment dispersion syndrome of both eyes 07/28/2024 12:50 PM CDT Imaging Exam [facility] Ophthalmology [facility] Outpatient [address] [address] Pigment dispersion syndrome of both eyes from Last 3 Months Surgical History Surgery Date Site/Laterality Comments [place] UNLISTED PROCEDURE ABDOME N PERITONEUM & OMENTUM Hernia Repair - X2 (Added by TW Conv) Medical History Medical History Date Comments Anxiety disorder Anxiety - (Adde d by TW Conv) Family History Medical History Relation Name Comments Glaucoma Mother Family history of glaucoma - (Added by TW Conv) Macular degeneration Mother Family history of macular degeneration - (Added by TW Conv) Relation Name Status Comments Mother Social History Tobacco Use Types Packs/Day Years Used Date Smoking Tobacco: Never Sex and Gender Information Value Date Recorded Sex Assigned at Not on file Legal Sex Male 9:52 PM CAD DEVELOPER Gender Identity Not on file Sexual Orientation Not on file Obstetrics History Plan of Treatment Health Maintenance Due Date Last Done Comments Colon Cancer Screening-Colonoscopy 1974 Depression Screening 1974 Hepatitis C Screening 1974 Regular Well Visit/Exam 18-64 1992 Covid-19 Vaccine ( season) 2023 10/06/2022, 02/17/2021, 05/26/2020, Additional history exists Influenza Vaccine (#1) 2024 , 02/19/2022, 01/15/2021, Additional history exists DTaP/Tdap/Td Vaccine (6 - Td or Tdap) 10/06/2032 10/06/2022, 07/05/2016, 09/08/1998, Additional history exists Hepatitis B Screening Completed 08/05/2016, 017 Pneumococcal vaccine <65 Aged Out No longer eligible based on patient's age to complete this topic Procedures Procedure Name Priority Date/Time Associated Diagnosis Comments OCT, OPTIC NERVE - OU - BOTH EYES Routine 07/28/2024 2:09 PM CDT Pigment dispersion syndrome of both eyes REESE VISUAL FIELD - OU - BOTH EYES Routine 07/28/2024 2:09 PM CDT Pigment dispersion syndrome of both eyes from Last 3 Months Results * OCT, Optic Nerve - OU - Both Eyes (07/28/2024 2:09 PM CDT) RNFL OS 83 micrometers CONTINUUM RNFL OD 71 micrometers CONTINUUM Anatomical Region Laterality Modality Head Other Narrative 07/28/2024 4:53 PM CDT Right Eye Reliability was good. Temporal progression was stable. Temporal thickness was normal. Superior progression was worsened. Superior thickness was normal. Nasal progression was stable. Nasal thickness was normal. Inferior progression was worsened. Inferior thickness was showing abnormal thinning. Average RNFL thickness 71 micrometers. Left Eye Reliability was good. Temporal progression was stable. Temporal thickness was normal. Superior progression was stable. Superior thickness was normal. Nasal progression was stable. Nasal thickness was normal. Inferior progression was stable. Inferior thickness was normal. Average RNFL thickness 83 micrometers. Notes Nl nerve fiber layer (NFL) both eyes (OU) 2018 Jo Ann Witt MD OPH TOMOGRAPHY Final R esult * Reese Visual Field - OU - Both Eyes (07/28/2024 2:09 PM CDT) Pattern Deviation OS 1.84 CONTINUUM Pattern Deviation OD 1.10 CONTINUUM Mean Deviation OS -1.03 CONTINUUM Mean Deviation OD -0.59 CONTINUUM Anatomical Region Laterality Modality Head Other Narrative 07/28/2024 4:53 PM CDT Right Eye Fixation was good. Cooperation was good. Reliability was good. Progression has no prior data. Foveal threshold was normal. Findings include non-specific defects. Mean Deviation was -0.59. Pattern Deviation was 1.10. Left Eye Fixation was good. Cooperation was good. Reliability was good. Progression has no prior data. Foveal threshold was normal. Findings include normal observations. Mean Deviation was -1.03. Pattern Deviation was 1.84. Jo Ann Witt MD OPH VISUAL FIELD Final Result from Last 3 Months Insurance [facility] CHOICE PLUS Care Teams Cloud Engineer Relationship Specialty Start Date End Date Paola Ordoñez PA PCP - General 09/10/17
--- OUTSIDE RECORDS SUMMARY | 2024-10-20 07:16 | XMS_ITS | Referral Summary ---
Author Organization [facility] Address [address] [place] [address] Care Team Providers Care Solar Business Developer Name Role Phone Paola Ordoñez Primary Care Provider [phone] Encounters Date Type Department Care Team Description 10/14/2024 Telephone [facility] Ophthalmology [facility] [address] [facility] [address] Floor, [address] [place] [address] Jo Ann Witt MD 07/28/2024 1:45 PM CDT Office Visit [facility] Ophthalmology [address] [place] [address] [place] [address] Jo Ann Witt MD Pigmentary glaucoma, right eye, mild stage (Primary Dx); Pigment dispersion syndrome of left eye 07/28/2024 1:10 PM CDT Imaging Exam [facility] Ophthalmology [address] [place] [address] Outpatient Health [address] [place] [phone] Pigment dispersion syndrome of both eyes 07/28/2024 12:50 PM CDT Imaging Exam [facility] Ophthalmology [address] [place] [address] Outpatient Health [address] [place] [phone] Pigment dispersion syndrome of both eyes from Last 3 Months Allergies Active Allergy Reactions Criticality Noted Date [...] check Assessment & Plan (03/18/2024 10:24 PM NUISANCE WILDLIFE TRAPPER): Intraocular pressure (IOP) acceptable status post (s/p) [...] (OU) right eye (OD) followed by OS Social History Tobacco Use Types Packs/Day Years Used Date Smoking Tobacco: Never Sex and Gender Information Value Date Recorded Sex Assigned at Not on file Legal Sex Male 9:52 PM NUISANCE WILDLIFE TRAPPER Gender Identity Not on file Sexual Orientation Not on file Plan of Treatment Not on file Procedures Procedure Name Priority Date/Time Associated Diagnosis [...] fiber layer (NFL) both eyes (OU) 2018 us Jo Ann Witt MD OPHTH TOMOGRAPHY Final R esult * Reese Visual [...] Deviation was 1.84. Jo Ann Witt MD OPHTH VISUAL FIELD Final Result from Last 3 Months Insurance [facility] CHOICE PLUS Care Teams Solar Business Developer Relationship Specialty Start Date End Date Paola Ordoñez PA PCP - General 09/10/17
[2024-10-20 07:55] LABS: Hematocrit 45.0 % (42.0-52.0); Hemoglobin 15.6 g/dL (14.0-18.0); Mean Corpuscular HGB Conc 34.7 g/dl (32-36); Mean Corpuscular Hemoglobin 30.4 pg (26-34); Mean Corpuscular Volume 87.5 fl (80-100); Platelet Count Result 177 k/mm3 (150-375); Red Blood Count 5.14 M/mm3 (4.6-6.20); White Blood Count 4.6 K/mm3 (4.5-10.0)
[2024-10-20 07:56] LABS: Add Urine Microscopic? NO; Appearance Urine Clear (Clear); Glucose Urine UA Negative (Negative); Leukocyte Esterase Ur Negative LEU/UL (Negative); Nitrate Urine Negative (Negative); Specific Grav Ur 1.017 (1.001-1.035)
[2024-10-20 08:20] LABS: Alanine Aminotransferase 38 U/L (6-50); Albumin Level 4.2 g/dL (3.5-5.1); Alkaline Phosphatase 57 U/L (38-126); Anion Gap 9 mmol/L (4-12); Aspartate Amino Transferase 35 U/L (17-59); Bilirubin,Total 0.8 mg/dL (0.2-1.3); Blood Urea Nitrogen 10 mg/dL (9-20); Calcium 9.2 mg/dL (8.4-10.2); Carbon Dioxide 22 mmol/L (22-30); Chloride 106 mmol/L (98-107); Cholesterol 219 mg/dL (0-200); Estimated Glomerular Filt Rate > 60; Glucose 107 mg/dL (65-110); HDL Direct 47 mg/dL; Potassium 3.9 mmol/L (3.4-5.0); Sodium 137 mmol/L (137-145); Total Protein 6.8 g/dL (6.3-8.2); Triglycerides 108 mg/dL (<150)
[2024-10-20 08:29] LABS: NT Pro B Type Natriuretic Pept < 20 pg/mL (19.9-100); Troponin I < 0.012 ng/mL (0.000-0.034)
[2024-10-20 08:47] LABS: Thyroid Stimulating Hormone 2.340 uIU/mL (0.465-4.680)
== END 2024-10-20 07:12 | disposition home or self-care (01) ==
LOC: ANHLAB 07:14
PROVIDERS: PCP Internal Medicine; Visit Provider Internal Medicine
DX: R07.89 Other chest pain (principal)
CPT/HCPCS: 36415; 80053; 80061; 81003; 83880; 84443; 84484; 85027

== ENCOUNTER 2024-11-01 10:39 | Outpatient (CLI) | payer OTHER, SELFPAY ==
--- NOTE | 2024-11-01 10:46 | EST_ITS ---
Patient Info Name: Trey Multani Age: 49 years : 1975 Gender: Male Ht: 74 in Wt: 253 lbs BSA: 2.48 m2 HR: 58 bpm BP: 123 / 78 mmHg Heart Rhythm: Sinus Rhythm Technical Quality: Good Exam Date: 11/01/2024 10:46 AM Patient Status: O Admit Date: 11/01/2024 Exam Type: CA stress test treadmill w NM A treadmill exercise stress test was performed. Staff Referring Physician: Jonathon Weeks MD Attending Provider: Jonathon Weeks MD Summary 1. 1. Negative Taurus exercise stress test for ischemic ST changes by ECG criteria. 2. 2. Good functional capacity, achieving 12 METs of workload. 3. 3. Hypertensive response to exercise. 4. 4. Appropriate HR response to exercise. 5. 5. Appropriate HR recovery at 1 minute post exercise. 6. 6. Nuclear scan to follow and will be reported separately. Please correlate with it. Protocol: Taurus Stress ECG Details Stage: REST Duration (min): 1 min : 30 sec Speed (mph): 0.0 Grade (%): 0 HR (bpm): 58 SBP (mmHg): 123 DBP (mmHg): 78 METS: --- Stage: REST Duration (min): 12 min : 58 sec Speed (mph): 0.0 Grade (%): 0 HR (bpm): 74 SBP (mmHg): 123 DBP (mmHg): 78 METS: --- Stage: STAGE 1 Duration (min): 1 min : 0 sec Speed (mph): 1.7 Grade (%): 10 HR (bpm): 97 SBP (mmHg): 123 DBP (mmHg): 78 METS: --- Stage: STAGE 1 Duration (min): 2 min : 0 sec Speed (mph): 1.7 Grade (%): 10 HR (bpm): 97 SBP (mmHg): 123 DBP (mmHg): 78 METS: --- Stage: STAGE 1 Duration (min): 3 min : 0 sec Speed (mph): 1.7 Grade (%): 10 HR (bpm): 98 SBP (mmHg): 144 DBP (mmHg): 78 METS: --- Stage: STAGE 2 Duration (min): 1 min : 0 sec Speed (mph): 2.5 Grade (%): 12 HR (bpm): 112 SBP (mmHg): 144 DBP (mmHg): 78 METS: --- Stage: STAGE 2 Duration (min): 2 min : 0 sec Speed (mph): 2.5 Grade (%): 12 HR (bpm): 122 SBP (mmHg): 144 DBP (mmHg): 78 METS: --- Stage: STAGE 2 Duration (min): 3 min : 0 sec Speed (mph): 2.5 Grade (%): 12 HR (bpm): 124 SBP (mmHg): 176 DBP (mmHg): 83 METS: --- Stage: STAGE 3 Duration (min): 1 min : 0 sec Speed (mph): 3.4 Grade (%): 14 HR (bpm): 137 SBP (mmHg): 176 DBP (mmHg): 83 METS: --- Stage: STAGE 3 Duration (min): 2 min : 0 sec Speed (mph): 3.4 Grade (%): 14 HR (bpm): 146 SBP (mmHg): 176 DBP (mmHg): 83 METS: --- Stage: STAGE 3 Duration (min): 3 min : 0 sec Speed (mph): 3.4 Grade (%): 14 HR (bpm): 152 SBP (mmHg): 215 DBP (mmHg): 100 METS: --- Stage: STAGE 4 Duration (min): 1 min : 0 sec Speed (mph): 4.2 Grade (%): 16 HR (bpm): 161 SBP (mmHg): 215 DBP (mmHg): 100 METS: --- Stage: STAGE 4 Duration (min): 1 min : 30 sec Speed (mph): 4.2 Grade (%): 16 HR (bpm): 166 SBP (mmHg): 215 DBP (mmHg): 100 METS: --- Stage: RECOVERY Duration (min): 0 min : 29 sec Speed (mph): 0.0 Grade (%): 0 HR (bpm): 156 SBP (mmHg): 215 DBP (mmHg): 100 METS: --- Stage: RECOVERY Duration (min): 1 min : 29 sec Speed (mph): 0.0 Grade (%): 0 HR (bpm): 121 SBP (mmHg): 215 DBP (mmHg): 100 METS: --- Stage: RECOVERY Duration (min): 2 min : 29 sec Speed (mph): 0.0 Grade (%): 0 HR (bpm): 101 SBP (mmHg): 161 DBP (mmHg): 86 METS: --- Stage: RECOVERY Duration (min): 3 min : 29 sec Speed (mph): 0.0 Grade (%): 0 HR (bpm): 93 SBP (mmHg): 161 DBP (mmHg): 86 METS: --- Stage: RECOVERY Duration (min): 4 min : 29 sec Speed (mph): 0.0 Grade (%): 0 HR (bpm): 90 SBP (mmHg): 147 DBP (mmHg): 68 METS: --- Stage: RECOVERY Duration (min): 5 min : 29 sec Speed (mph): 0.0 Grade (%): 0 HR (bpm): 87 SBP (mmHg): 147 DBP (mmHg): 68 METS: --- Stage: RECOVERY Duration (min): 6 min : 29 sec Speed (mph): 0.0 Grade (%): 0 HR (bpm): 84 SBP (mmHg): 146 DBP (mmHg): 77 METS: --- Stage: RECOVERY Duration (min): 7 min : 17 sec Speed (mph): 0.0 Grade (%): 0 HR (bpm): 82 SBP (mmHg): 146 DBP (mmHg): 77 METS: --- Rest HR: 74 bpm Peak HR: 167 bpm Rest Sys BP: 123 mmHg Peak Sys BP: 215 mmHg Max Pred HR: 170 bpm % Max Pred HR: 98 % Target HR: 145 bpm Max RPP: 35,905 bpm*mmHg Carrizales Score: -1 Target HR Summary: Patient's target heart rate was achieved BP Response: Patient exhibited a hypertensive response with stress Termination Reason: Dyspnea,Fatigue Cardiac Symptoms: None Max ST Seg Deviation: 2.20 mm Total Time: 10 min : 30 sec Rest Villalta BP: 78 mmHg Peak Villalta BP: 100 mmHg Angina Score: None Total METS: 12.1 Resting ECG Sinus bradycardia. Stress ECG No abnormal ST/T wave changes with exercise. Arrhythmias None. Report Signatures
--- OUTSIDE RECORDS SUMMARY | 2024-11-01 11:05 | XMS_ITS | Clinical Summary ---
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 Ophthalmology 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 Gender Identity Not on file Sexual Orientation Not on file Obstetrics History Plan of Treatment Health Maintenance Due Date Last Done Comments Colon Cancer Screening-Colonoscopy 1974 Depression Screening 1974 Hepatitis C Screening 1974 Prostate Cancer Screening-PSA 1974 Regular Well Visit/Exam 18-64 1992 Covid-19 Vaccine ( season) 2023 10/06/2022, 02/17/2021, 05/26/2020, Additional history exists Zoster Vaccine (1 of 2) 2024 Influenza Vaccine (#1) 2024 , 02/19/2022, 01/15/2021, Additional history exists DTaP/Tdap/Td Vaccine (6 - Td or Tdap) 10/06/2032 10/06/2022, 07/05/2016, 09/08/1998, Additional history exists Hepatitis B Screening Completed 08/05/2016, 017 Pneumococcal vaccine <65 Aged Out No longer eligible based on patient's age to complete this topic Insurance [facility] CHOICE PLUS Care Teams Wafer Fabricator Relationship Specialty Start Date End Date Paola Ordoñez PA PCP - General 09/10/17
--- OUTSIDE RECORDS SUMMARY | 2024-11-01 11:05 | XMS_ITS | Referral Summary ---
Author Organization [facility] Address [address] [facility] [address] Care Team Providers Care Sign Maintenance Name Role Phone Paola Ordoñez Primary Care Provider [phone] [phone] Encounters Date Type Department Care Team Description 10/14/2024 Telephone [facility] Ophthalmology 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
--- OUTSIDE RECORDS SUMMARY | 2024-11-01 11:05 | XMS_ITS | Data Portability ---
Author Organization [place] [facility] Address [address] [place] [address] Assessment Encounter Date Assessment Date Assessment LastModified by Organization Details LastModified Time 09/29/2023 09/29/[address] Gibson, who concurs with assessment and plan. [email or web address] Not available 10/14/2023 13:31:53 Plan of Treatment Reminders Order Date Submit Date Provider Last Modified By Organization Details Last Modified Time Details Appointments None recorded. Lab CBC w/ auto diff 2024 025 [facility], [address] [place] [address], [facility] [address], [place], [address], 5 20:10:53 CMP, serum or plasma 2024 025 [facility], [address] [place] [address], [facility] [address], [place], [address], 5 20:10:51 lipid panel, serum 2024 025 [facility], [address] [place] [address], [facility] [address], [place], [address], 5 20:10:50 TSH + free T4, serum 2024 025 [facility], [address] [place] [address], [address], [place], [address], 5 20:10:49 vitamin D, 25-hydroxy , total, serum 2024 025 JUAN DEVINE, Ziyad Villalobosradha Gonzales, [address], [place], [address], 5 20:10:55 PSA, serum or plasma 2024 025 JUAN LANDRP, Ziyad Collierdanilo Gonzales, [address], [place], [address], 5 20:10:52 urinalysis , dipstick 2024 025 [email or web address] In-Office Order, Internal Use Only DO Not Attach Compendium DO Not Attach Compendium, Do Not Delete/merge, [id number] 5 14:21:08 CMP, serum or plasma 2023 024 JUAN LANDCAROL, Ziyad Collierdanilo Gonzales, [address], [place], [address], 4 13:11:18 lipid panel, serum 2023 024 JUAN LANDCAROL, Ziyad Collierdanilo Gonzales, [address], [place], [address], 4 13:11:17 HbA1c (hemoglobi n A1c), blood 2023 024 JUAN LANDCAROL, Ziyad Collierdanilo Gonzales, [address], [place], [address], 4 13:11:18 TSH + free T4, serum 2023 024 JUAN MOREAUYUMIKO, Ziyad Nae Gonzales, [address], [place], [address], 4 13:11:17 CBC w/ auto diff 2023 024 JUAN MOREAUYUMIKO, DungAbigail Gonzales, [address], [place], [address], 13:11:19 Referral None recorded. Procedures None recorded. Surgeries None recorded. Imaging None recorded. Medication Orders None recorded. Patient TargetsNo targets recorded. Patient Instructions Encounter Date Encounter Id Patient Instructions Last Modified By Organization Details Last Modified Time 09/29/2023 [id number] A healthy lifestyle: care instructions Not available 09/29/2023 11:47:04 06/21/2024 [id number] A healthy lifestyle: care instructions Not available 06/21/2024 15:23:49 Reason for Referral None Reported. Results Created Date Observation Date Name Description Value Unit Range Abnormal Flag Note LastModifiedBy Organization Detail LastModifiedTime 09/29/1909/30/2023 TSH+F REE T4 TSH 1.790 uIU/m L 0.450- 4.500 Not Available [facility] ([facility]) [address] [place], [address], 09/30/2023 13:11:16 09/29/19 24 09/30/2023 TSH+F REE T4 T4,free(dire ct) 1.43 NG/dL 0.82-1 .77 Not Available [facility] ([facility]) [address] [place], [address], 09/30/2023 13:11:16 09/29/19 24 09/30/2023 LIPID PANEL cholesterol, total 185 mg/dL 100-19 9 Not Available [facility] ([facility]) [address] [place], [address], 09/30/2023 13:11:17 09/29/19 24 09/30/2023 LIPID PANEL triglyceride s 135 mg/dL 0-149 Not Available [facility] ([facility]) [address] [place], [address], 09/30/2023 13:11:17 09/29/19 24 09/30/2023 LIPID PANEL HDL cholesterol 54 mg/dL >39 Not Available [facility] ([facility]) [address] [facility], [place], [address], 09/30/2023 13:11:17 09/29/19 24 09/30/2023 LIPID PANEL VLDL cholesterol marco 24 mg/dL 5-40 Not Available [facility] ([facility]) [address] [facility], [place], [address], 09/30/2023 13:11:17 09/29/19 24 09/30/2023 LIPID PANEL LDL chol calc ([facility]) 107 mg/dL 0-99 above high normal Not Available [facility] ([facility]) [address] [place], [address], 09/30/2023 13:11:17 09/29/19 24 09/30/2023 COMP. METAB OLIC PANEL (14) glucose 84 mg/dL 70-99 Not Available [facility] ([facility]) [address] [place], [address], 09/30/2023 13:11:17 09/29/19 24 09/30/2023 COMP. METAB OLIC PANEL (14) BUN 12 mg/dL 6-24 Not Available [facility] ([facility]) [address] [place], [address], 09/30/2023 13:11:17 09/29/19 24 09/30/2023 COMP. METAB OLIC PANEL (14) creatinine 1.04 mg/dL 0.76-1 .27 Not Available [facility] ([facility]) [address] [place], [address], 09/30/2023 13:11:17 09/29/19 24 09/30/2023 COMP. METAB OLIC PANEL (14) eGFR 89 mL/mi n/1.7 3 >59 Not Available [facility] ([facility]) [address] [place], [address], 09/30/2023 13:11:17 09/29/19 24 09/30/2023 COMP. METAB OLIC PANEL (14) BUN/creatini ne ratio 12 9-20 Not Available [facility] ([facility]) [address] [place], [address], 09/30/2023 13:11:17 09/29/19 24 09/30/2023 COMP. METAB OLIC PANEL (14) sodium 139 mmol/ L 134-14 4 Not Available [facility] ([facility]) [address] [place], [address], 09/30/2023 13:11:17 09/29/19 24 09/30/2023 COMP. METAB OLIC PANEL (14) potassium 4.4 mmol/ L 3.5-5. 2 Not Available [facility] ([facility]) [address] [facility], [place], [address], 09/30/2023 13:11:17 09/29/19 24 09/30/2023 COMP. METAB OLIC PANEL (14) chloride 101 mmol/ L 96-106 Not Available [facility] ([facility]) [address] [place], [address], 09/30/2023 13:11:17 09/29/19 24 09/30/2023 COMP. METAB OLIC PANEL (14) carbon dioxide, total 22 mmol/ L 20-29 Not Available [facility] ([facility]) [address] [place], [address], 09/30/2023 13:11:17 09/29/19 24 09/30/2023 COMP. METAB OLIC PANEL (14) calcium 9.4 mg/dL 8.7-10 .2 Not Available [facility] ([facility]) [address] [place], [address], 09/30/2023 13:11:17 09/29/19 24 09/30/2023 COMP. METAB OLIC PANEL (14) protein, total 6.6 g/dL 6.0-8. 5 Not Available [facility] ([facility]) [address] [facility] [place], [address], 09/30/2023 13:11:17 09/29/19 24 09/30/2023 COMP. METAB OLIC PANEL (14) albumin 4.5 g/dL 4.1-5. 1 Not Available [facility] ([facility]) [address] [place], [address], 09/30/2023 13:11:17 09/29/19 24 09/30/2023 COMP. METAB OLIC PANEL (14) globulin, total 2.1 g/dL 1.5-4. 5 Not Available [facility] ([facility]) [address] [place], [address], 09/30/2023 13:11:17 09/29/19 24 09/30/2023 COMP. METAB OLIC PANEL (14) bilirubin, total 0.8 mg/dL 0.0-1. 2 Not Available [facility] ([facility]) [address] [place], [address], 09/30/2023 13:11:17 09/29/19 24 09/30/2023 COMP. METAB OLIC PANEL (14) alkaline phosphatase 74 IU/L 44-121 Not Available [facility] ([facility]) [address] [place], [address], 09/30/2023 13:11:17 09/29/19 24 09/30/2023 COMP. METAB OLIC PANEL (14) AST (SGOT) 24 IU/L 0-40 Not Available [facility] ([facility]) [address] [place], [address], 09/30/2023 13:11:17 09/29/19 24 09/30/2023 COMP. METAB OLIC PANEL (14) ALT (SGPT) 20 IU/L 0-44 Not Available [facility] ([facility]) [address] [facility] [place], [address], 09/30/2023 13:11:17 09/29/1909/30/2023 HEMOG LOBIN A1C hemoglobin A1C 5.6 % 4.8-5. 6 Predi abete s: 5.7 - 6.4 Diabe alvarado: >6.4 Glyce cory contr ol for adult s with diabe alvarado: <7.0 Not Available [facility] ([facility]) [address] [facility], [place], [address], 09/30/2023 13:11:18 09/29/1909/30/2023 CBC WITH DIFFE RENTI AL/PL ATELE T WBC 5.0 x10e3 /uL 3.4-10 .8 Not Available [facility] ([facility]) [address] [facility], [place], [address], 09/30/2023 13:11:19 09/29/1909/30/2023 CBC WITH DIFFE RENTI AL/PL ATELE T RBC 5.02 x10e6 /uL 4.14-5 .80 Not Available [facility] ([facility]) [address] [facility], [place], [address], 09/30/2023 13:11:19 09/29/1909/30/2023 CBC WITH DIFFE RENTI AL/PL ATELE T hemoglobin 15.0 g/dL 13.0-1 7.7 Not Available [facility] ([facility]) [address] [facility], [place], [address], 09/30/2023 13:11:19 09/29/1909/30/2023 CBC WITH DIFFE RENTI AL/PL ATELE T hematocrit 45.9 % 37.5-5 1.0 Not Available [facility] ([facility]) [address] [facility], [place], [address], 09/30/2023 13:11:19 09/29/19 24 09/30/2023 CBC WITH DIFFE RENTI AL/PL ATELE T MCV 91 fL 79-97 Not Available [facility] ([facility]) [address] [place], [address], 09/30/2023 13:11:19 09/29/19 24 09/30/2023 CBC WITH DIFFE RENTI AL/PL ATELE T MCH 29.9 pg 26.6-3 3.0 Not Available [facility] ([facility]) [address] [facility], [place], [address], 09/30/2023 13:11:19 09/29/19 24 09/30/2023 CBC WITH DIFFE RENTI AL/PL ATELE T MCHC 32.7 g/dL 31.5-3 5.7 Not Available [facility] ([facility]) [address] [facility], [place], [address], 09/30/2023 13:11:19 09/29/19 24 09/30/2023 CBC WITH DIFFE RENTI AL/PL ATELE T RDW 13.1 % 11.6-1 5.4 Not Available [facility] ([facility]) [address] [place], [address], 09/30/2023 13:11:19 09/29/19 24 09/30/2023 CBC WITH DIFFE RENTI AL/PL ATELE T platelets 193 x10e3 /uL 150-45 0 Not Available [facility] ([facility]) [address] [place], [address], 09/30/2023 13:11:19 09/29/19 24 09/30/2023 CBC WITH DIFFE RENTI AL/PL ATELE T neutrophils 59 % notest ab. Not Available [facility] ([facility]) [address] [place], [address], 09/30/2023 13:11:19 09/29/19 24 09/30/2023 CBC WITH DIFFE RENTI AL/PL ATELE T lymphs 30 % notest ab. Not Available [facility] ([facility]) [address] [facility], [place], [address], 09/30/2023 13:11:19 09/29/19 24 09/30/2023 CBC WITH DIFFE RENTI AL/PL ATELE T monocytes 8 % notest ab. Not Available [facility] ([facility]) [address] [facility], [place], [address], 09/30/2023 13:11:19 09/29/19 24 09/30/2023 CBC WITH DIFFE RENTI AL/PL ATELE T eos 2 % notest ab. Not Available [facility] ([facility]) [address] [facility], [place], [address], 09/30/2023 13:11:19 09/29/19 24 09/30/2023 CBC WITH DIFFE RENTI AL/PL ATELE T basos 1 % notest ab. Not Available [facility] ([facility]) [address] [facility], [place], [address], 09/30/2023 13:11:19 09/29/19 24 09/30/2023 CBC WITH DIFFE RENTI AL/PL ATELE T neutrophils (absolute) 3.0 x10e3 /uL 1.4-7. 0 Not Available [facility] ([facility]) [address] [place], [address], 09/30/2023 13:11:19 09/29/1909/30/2023 CBC WITH DIFFE RENTI AL/PL ATELE T lymphs (absolute) 1.5 x10e3 /uL 0.7-3. 1 Not Available [facility] ([facility]) [address] [facility], [place], [address], 09/30/2023 13:11:19 09/29/19 24 09/30/2023 CBC WITH DIFFE RENTI AL/PL ATELE T monocytes(ab solute) 0.4 x10e3 /uL 0.1-0. 9 Not Available [facility] ([facility]) [address] [facility], [place], [address], 09/30/2023 13:11:19 09/29/19 24 09/30/2023 CBC WITH DIFFE RENTI AL/PL ATELE T eos (absolute) 0.1 x10e3 /uL 0.0-0. 4 Not Available [facility] ([facility]) [address] [facility], [place], [address], 09/30/2023 13:11:19 09/29/19 24 09/30/2023 CBC WITH DIFFE RENTI AL/PL ATELE T baso (absolute) 0.0 x10e3 /uL 0.0-0. 2 Not Available [facility] ([facility]) [address] [facility], [place], [address], 09/30/2023 13:11:19 09/29/1909/30/2023 CBC WITH DIFFE RENTI AL/PL ATELE T immature granulocytes 0 % notest ab. Not Available [facility] ([facility]) [address] [facility], [place], [address], 09/30/2023 13:11:19 09/29/19 24 09/30/2023 CBC WITH DIFFE RENTI AL/PL ATELE T immature grans (abs) 0.0 x10e3 /uL 0.0-0. 1 Not Available [facility] ([facility]) [address] [place], [address], 09/30/2023 13:11:19 09/29/1909/30/2023 VITAM IN D, 25-HY [...] um and D. Angelika patrick DC: [facility] . 2. Nisha bassett MF, Zana ey [place], Laury off-F errar i WYNNE, et al. Evalu ation , treat ment, and preve ntion of vitam in D defic iency : an Endoc rine Socie ty clini marco pract ice guide line. JCEM. 2010; 96(7) :1911 -30. Not Available [facility] ([facility]) [address] [place], [address], 09/30/2023 13:11:19 06/22/19 25 06/22/2024 TSH+F REE T4 TSH 1.290 uIU/m L 0.450- 4.500 Not Available [facility] ([facility]) [address] [place], [address], 06/22/2024 20:10:48 06/22/19 25 06/22/2024 TSH+F REE T4 T4,free(dire ct) 1.47 NG/dL 0.82-1 .77 Not Available [facility] ([facility]) [address] [place], [address], 06/22/2024 20:10:48 06/22/19 25 06/22/2024 LIPID PANEL cholesterol, total 194 mg/dL 100-19 9 Not Available [facility] ([facility]) [address] [place], [address], 06/22/2024 20:10:50 06/22/19 25 06/22/2024 LIPID PANEL triglyceride s 106 mg/dL 0-149 Not Available [facility] ([facility]) [address] [place], [address], 06/22/2024 20:10:50 06/22/19 25 06/22/2024 LIPID PANEL HDL cholesterol 55 mg/dL >39 Not Available [facility] ([facility]) [address] [place], [address], 06/22/2024 20:10:50 06/22/19 25 06/22/2024 LIPID PANEL VLDL cholesterol marco 19 mg/dL 5-40 Not Available [facility] ([facility]) [address] [place], [address], 06/22/2024 20:10:50 06/22/19 25 06/22/2024 LIPID PANEL LDL chol calc ([facility]) 120 mg/dL 0-99 above high normal Not Available [facility] ([facility]) [address] [place], [address], 06/22/2024 20:10:50 06/22/19 25 06/22/2024 COMP. METAB OLIC PANEL (14) glucose 86 mg/dL 70-99 Not Available [facility] ([facility]) [address] [place], [address], 06/22/2024 20:10:51 06/22/19 25 06/22/2024 COMP. METAB OLIC PANEL (14) BUN 10 mg/dL 6-24 Not Available [facility] ([facility]) [address] [place], [address], 06/22/2024 20:10:51 06/22/19 25 06/22/2024 COMP. METAB OLIC PANEL (14) creatinine 0.97 mg/dL 0.76-1 .27 Not Available [facility] ([facility]) [address] [place], [address], 06/22/2024 20:10:51 06/22/19 25 06/22/2024 COMP. METAB OLIC PANEL (14) eGFR 96 mL/mi n/1.7 3 >59 Not Available [facility] ([facility]) [address] [facility], [place], [address], 06/22/2024 20:10:51 06/22/19 25 06/22/2024 COMP. METAB OLIC PANEL (14) BUN/creatini ne ratio 10 9-20 Not Available [facility] ([facility]) [address] [facility], [place], [address], 06/22/2024 20:10:51 06/22/19 25 06/22/2024 COMP. METAB OLIC PANEL (14) sodium 140 mmol/ L 134-14 4 Not Available [facility] ([facility]) [address] [facility], [place], [address], 06/22/2024 20:10:51 06/22/19 25 06/22/2024 COMP. METAB OLIC PANEL (14) potassium 4.3 mmol/ L 3.5-5. 2 Not Available [facility] ([facility]) [address] [facility], [place], [address], 06/22/2024 20:10:51 06/22/19 25 06/22/2024 COMP. METAB OLIC PANEL (14) chloride 103 mmol/ L 96-106 Not Available [facility] ([facility]) [address] [facility], [place], [address], 06/22/2024 20:10:51 06/22/19 25 06/22/2024 COMP. METAB OLIC PANEL (14) carbon dioxide, total 25 mmol/ L 20-29 Not Available [facility] ([facility]) [address] [facility], [place], [address], 06/22/2024 20:10:51 06/22/19 25 06/22/2024 COMP. METAB OLIC PANEL (14) calcium 9.1 mg/dL 8.7-10 .2 Not Available [facility] ([facility]) [address] [facility], [place], [address], 06/22/2024 20:10:51 06/22/19 25 06/22/2024 COMP. METAB OLIC PANEL (14) protein, total 6.7 g/dL 6.0-8. 5 Not Available [facility] ([facility]) [address] [facility], [place], [address], 06/22/2024 20:10:51 06/22/19 25 06/22/2024 COMP. METAB OLIC PANEL (14) albumin 4.5 g/dL 4.1-5. 1 Not Available [facility] ([facility]) [address] [facility], [place], [address], 06/22/2024 20:10:51 06/22/19 25 06/22/2024 COMP. METAB OLIC PANEL (14) globulin, total 2.2 g/dL 1.5-4. 5 Not Available [facility] ([facility]) [address] [facility], [place], [address], 06/22/2024 20:10:51 06/22/19 25 06/22/2024 COMP. METAB OLIC PANEL (14) bilirubin, total 0.7 mg/dL 0.0-1. 2 Not Available [facility] ([facility]) [address] [facility], [place], [address], 06/22/2024 20:10:51 06/22/19 25 06/22/2024 COMP. METAB OLIC PANEL (14) alkaline phosphatase 79 IU/L 44-121 Not Available [facility] ([facility]) [address] [facility], [place], [address], 06/22/2024 20:10:51 06/22/19 25 06/22/2024 COMP. METAB OLIC PANEL (14) AST (SGOT) 20 IU/L 0-40 Not Available [facility] ([facility]) [address] [facility], [place], [address], 06/22/2024 20:10:51 06/22/19 25 06/22/2024 COMP. METAB OLIC PANEL (14) ALT (SGPT) 25 IU/L 0-44 Not Available [facility] ([facility]) [address] [place], [address], 06/22/2024 20:10:51 06/22/19 25 06/22/2024 UA/M W/RFL X CULTU RE, ROUTI NE specific gravity - Test not perfo rmed. No urine speci men recei annamaria. Not Available [facility] ([facility]) [address] [facility], [place], [address], 06/22/2024 20:10:52 06/22/19 25 06/22/2024 UA/M W/RFL X CULTU RE, ROUTI NE pH - Test not perfo rmed Not Available [facility] ([facility]) [address] [place], [address], 06/22/2024 20:10:52 06/22/19 25 06/22/2024 UA/M W/RFL X CULTU RE, ROUTI NE protein - Test not perfo rmed Not Available [facility] ([facility]) [address] [place], [address], 06/22/2024 20:10:52 06/22/19 25 06/22/2024 UA/M W/RFL X CULTU RE, ROUTI NE glucose - Test not perfo rmed Not Available [facility] ([facility]) [address] [place], [address], 06/22/2024 20:10:52 06/22/19 25 06/22/2024 UA/M W/RFL X CULTU RE, ROUTI NE ketones - Test not perfo rmed Not Available [facility] ([facility]) [address] [place], [address], 06/22/2024 20:10:52 06/22/19 25 06/21/2024 PSA TOTAL (REFL EX TO FREE) reflex criteria COMMEN T The perce nt free PSA is perfo rmed on a refle x basis only when the total PSA is betwe en 4.0 and 10.0 ng/mL . Not Available [facility] ([facility]) [address] [facility], [place], [address], 06/22/2024 20:10:52 06/22/19 25 06/22/2024 PSA TOTAL [...] t be inter prete d as absol [employer] evide nce of the prese nce or absen ce of katey ruiz se. Not Available [facility] ([facility]) [address] [facility], [place], [address], 06/22/2024 20:10:52 06/22/19 25 06/22/2024 CBC WITH DIFFE RENTI AL/PL ATELE T WBC 5.1 x10e3 /uL 3.4-10 .8 Not Available [facility] ([facility]) [address] [place], [address], 06/22/2024 20:10:53 06/22/19 25 06/22/2024 CBC WITH DIFFE RENTI AL/PL ATELE T RBC 4.83 x10e6 /uL 4.14-5 .80 Not Available [facility] ([facility]) [address] [place], [address], 06/22/2024 20:10:53 06/22/19 25 06/22/2024 CBC WITH DIFFE RENTI AL/PL ATELE T hemoglobin 15.0 g/dL 13.0-1 7.7 Not Available [facility] ([facility]) [address] [facility], [place], [address], 06/22/2024 20:10:53 06/22/19 25 06/22/2024 CBC WITH DIFFE RENTI AL/PL ATELE T hematocrit 43.0 % 37.5-5 1.0 Not Available [facility] ([facility]) [address] [place], [address], 06/22/2024 20:10:53 06/22/19 25 06/22/2024 CBC WITH DIFFE RENTI AL/PL ATELE T MCV 89 fL 79-97 Not Available [facility] ([facility]) [address] [facility], [place], [address], 06/22/2024 20:10:53 06/22/19 25 06/22/2024 CBC WITH DIFFE RENTI AL/PL ATELE T MCH 31.1 pg 26.6-3 3.0 Not Available [facility] ([facility]) [address] [place], [address], 06/22/2024 20:10:53 06/22/19 25 06/22/2024 CBC WITH DIFFE RENTI AL/PL ATELE T MCHC 34.9 g/dL 31.5-3 5.7 Not Available [facility] ([facility]) [address] [place], [address], 06/22/2024 20:10:53 06/22/19 25 06/22/2024 CBC WITH DIFFE RENTI AL/PL ATELE T RDW 12.5 % 11.6-1 5.4 Not Available [facility] ([facility]) [address] [place], [address], 06/22/2024 20:10:53 06/22/19 25 06/22/2024 CBC WITH DIFFE RENTI AL/PL ATELE T platelets 167 x10e3 /uL 150-45 0 Not Available [facility] ([facility]) [address] [facility], [place], [address], 06/22/2024 20:10:53 06/22/19 25 06/22/2024 CBC WITH DIFFE RENTI AL/PL ATELE T neutrophils 53 % notest ab. Not Available [facility] ([facility]) [address] [facility], [place], [address], 06/22/2024 20:10:53 06/22/19 25 06/22/2024 CBC WITH DIFFE RENTI AL/PL ATELE T lymphs 35 % notest ab. Not Available [facility] ([facility]) [address] [facility], [place], [address], 06/22/2024 20:10:53 06/22/19 25 06/22/2024 CBC WITH DIFFE RENTI AL/PL ATELE T monocytes 9 % notest ab. Not Available [facility] ([facility]) [address] [facility], [place], [address], 06/22/2024 20:10:53 06/22/19 25 06/22/2024 CBC WITH DIFFE RENTI AL/PL ATELE T eos 2 % notest ab. Not Available [facility] ([facility]) [address] [facility], [place], [address], 06/22/2024 20:10:53 06/22/19 25 06/22/2024 CBC WITH DIFFE RENTI AL/PL ATELE T basos 1 % notest ab. Not Available [facility] ([facility]) [address] [facility], [place], [address], 06/22/2024 20:10:53 06/22/19 25 06/22/2024 CBC WITH DIFFE RENTI AL/PL ATELE T neutrophils (absolute) 2.7 x10e3 /uL 1.4-7. 0 Not Available [facility] ([facility]) [address] [place], [address], 06/22/2024 20:10:53 06/22/19 25 06/22/2024 CBC WITH DIFFE RENTI AL/PL ATELE T lymphs (absolute) 1.8 x10e3 /uL 0.7-3. 1 Not Available [facility] ([facility]) [address] [place], [address], 06/22/2024 20:10:53 06/22/19 25 06/22/2024 CBC WITH DIFFE RENTI AL/PL ATELE T monocytes(ab solute) 0.4 x10e3 /uL 0.1-0. 9 Not Available [facility] ([facility]) [address] [facility], [place], [address], 06/22/2024 20:10:53 06/22/19 25 06/22/2024 CBC WITH DIFFE RENTI AL/PL ATELE T eos (absolute) 0.1 x10e3 /uL 0.0-0. 4 Not Available [facility] ([facility]) [address] [place], [address], 06/22/2024 20:10:53 06/22/19 25 06/22/2024 CBC WITH DIFFE RENTI AL/PL ATELE T baso (absolute) 0.0 x10e3 /uL 0.0-0. 2 Not Available [facility] ([facility]) [address] [place], [address], 06/22/2024 20:10:53 06/22/19 25 06/22/2024 CBC WITH DIFFE RENTI AL/PL ATELE T immature granulocytes 0 % notest ab. Not Available [facility] ([facility]) [address] [place], [address], 06/22/2024 20:10:53 06/22/19 25 06/22/2024 CBC WITH DIFFE RENTI AL/PL ATELE T immature grans (abs) 0.0 x10e3 /uL 0.0-0. 1 Not Available [facility] ([facility]) [address] [facility], [place], [address], 06/22/2024 20:10:53 06/22/19 25 06/22/2024 VITAM IN [...] um and D. Angelika patrick [place]: [facility] [facility] Press . 2. Nisha bassett MF, Zana moraes NC, Laury off-F errar i WYNNE, et al. Evalu ation , treat ment, and preve ntion of vitam in D defic iency : an Endoc rine Socie ty clini marco pract ice guide line. JCEM. 2010; 96(7) :1911 -30. Not Available [facility] ([facility]) [address] [facility], [place], [address], 06/22/2024 20:10:54 06/22/19 25 06/21/2024 urina lysis , dipst ick Leukocytes Negati ve Not Available In-Office Order Internal Use Only DO Not Attach Compendium DO Not Attach Compendium, Do Not Delete/merge, [id number] 06/21/2024 14:20:30 06/22/19 25 06/21/2024 urina lysis , dipst ick Nitrite negati ve Not Available In-Office Order Internal Use Only DO Not Attach Compendium DO Not Attach Compendium, Do Not Delete/merge, [id number] 06/21/2024 14:20:30 06/22/19 25 06/21/2024 urina lysis , dipst ick Urobilinogen .2 Not Available In-Of fice Order Internal Use Only DO Not Attach Compendium DO Not Attach Compendium, Do Not Delete/merge, [id number] 06/21/2024 14:20:30 06/22/19 25 06/21/2024 urina lysis , dipst ick Protein 30 Not Available In-Office Order Internal Use Only DO Not Attach Compendium DO Not Attach Compendium, Do Not Delete/merge, [id number] 06/21/2024 14:20:30 06/22/19 25 06/21/2024 urina lysis , dipst ick pH 6.0 Not Available In-Office Order Internal Use Only DO Not Attach Compendium DO Not Attach Compendium, Do Not Delete/merge, [facility] 06/21/2024 14:20:30 06/22/19 25 06/21/2024 urina lysis , dipst ick Blood Negati ve Not Available In-Office Order Internal Use Only DO Not Attach Compendium DO Not Attach Compendium, Do Not Delete/merge, [facility] 06/21/2024 14:20:30 06/22/19 25 06/21/2024 urina lysis , dipst ick Specific [place] 1.005 Not Available In-Off ice Order Internal Use Only DO Not Attach Compendium DO Not Attach Compendium, Do Not Delete/merge, [facility] 06/21/2024 14:20:30 06/22/19 25 06/21/2024 urina lysis , dipst ick Ketone Negati ve Not Available In-Office Order Internal Use Only DO Not Attach Compendium DO Not Attach Compendium, Do Not Delete/merge, [facility] 06/21/2024 14:20:30 06/22/19 25 06/21/2024 urina lysis , dipst ick Bilirubin Negati ve Not Available In-Office Order Internal Use Only DO Not Attach Compendium DO Not Attach Compendium, Do Not Delete/merge, [id number] 06/21/2024 14:20:30 06/22/19 25 06/21/2024 urina lysis , dipst ick Glucose Negati ve Not Available In-Office Order Internal Use Only DO Not Attach Compendium DO Not Attach Compendium, Do Not Delete/merge, [id number] 06/21/2024 14:20:30 06/22/19 25 06/21/2024 urina lysis , dipst ick Appearance Clear Not Available In-Offi ce Order Internal Use Only DO Not Attach Compendium DO Not Attach Compendium, Do Not Delete/merge, [id number] 06/21/2024 14:20:30 06/22/19 25 06/21/2024 urina lysis , dipst ick Color Yellow Not Available In-Office Order Internal Use Only DO Not Attach Compendium DO Not Attach Compendium, Do Not Delete/merge, [id number] 06/21/2024 14:20:30 Result Notes None recorded. Problems No Known Problems Procedures Surgical History Date Name Laterality Status Provider Name and Address Organization Details Recorded Time hernia repair completed Cyndi Kelly MA [place] - [facility] 09/29/2023 11:07:06 Imaging Results None recorded. Procedure Notes None recorded. Medical Equipment None Reported. Allergies Allergen ID Allergen Name Allergen Category Reaction Reaction Severity Criticality Documentation Date Start Date Code Code System Note Provider Name and Address Organization Details Recorded Time 924608 Substance with sulfonami de structure and antibacte rial mechanism of action (substanc e) medicatio n Not available Not available Not available 02/19/2022 [id number] SNNELSON Oconnell NP Attn: Krista neal,[address] [facility], [place], [address], [facility] - [facility] 2 11:30:49 Medications Name Sig [...] Updated DateTime 5 187.96 cm 32.7 kg/m2 851030. 05 g 99 % 99 % 97 /min 18 /min 97.6 [degF] 130/72 mm[Hg] Cyndi Kelly MA [facility] 5 13:59:48 Date Recorded Body temperature Respiratory rate Heart rate Oxygen saturation Oxygen saturation in Arterial blood by Pulse oximetry Body height Body mass index (BMI) Body weight Systolic And Diastolic Provider Name and Address Organization Details Last Updated DateTime 4 97.9 [degF] 17 /min 57 /min 99 % 99 % 187.96 cm 32.6 kg/m2 914735. 46 g 128/72 mm[Hg] Cyndi Kelly MA [facility] 4 11:04:17 Social History Question Answer Notes LastModified by [employer] Details LastModified Time Tobacco Smoking Status Never Smoker KAILEE Oconnell NP Attn: [facility],[address] [place], [address], [facility] 02/19/2022 11:31:29 What Is Your Level Of [...] Functional Status Question Answer Note LastModified by [employer] Details LastModified Time Do you use any [...] completed KAILEE Oconnell NP Attn: [employer]ing,[address] [place], [place], [address] [place] [address], [place] [facility] 06/21/2024 15:24:00 MMR 6 completed KAILEE Oconnell NP Attn: Accounting,[address] [place], [place], [address] [place] [address], [place] [facility] 06/21/2024 15:24:00 COVID-19, mRNA, LNP-S, PF, 30 mcg/0.3 mL dose 1 completed KAILEE Oconnell NP Attn: Accounting,[address] [place], [place], [address] [place] [address], [place] [facility] 06/21/2024 15:24:00 COVID-19, mRNA, LNP-S, PF, 30 mcg/0.3 mL dose 1 completed KAILEE Oconnell NP Attn: Accounting,[address] [place], [place], [address] [place] [address], [place] [facility] 06/21/2024 15:24:00 COVID-19, mRNA, LNP-S, PF, 30 mcg/0.3 mL dose 1 kaden Oconnell NP Attn: Accounting,[address] [place], [address] [place] [address], [place] [facility] 06/21/2024 15:24:00 DT (pediatric) 9 completed KAILEE Oconnell NP Attn: Accounting,[address] [facility], [place], [address], [place] [facility] 06/21/2024 15:24:00 rubella 5 completed KAILEE Oconnell NP Attn: Accounting,[address] [facility], [place], [address], [place] [facility] 06/21/2024 15:24:00 Tdap 7 kaden Oconnell NP Attn: Accounting,[address] [facility], [place], [address], [place] [facility] 06/21/2024 15:24:00 Influenza, split virus, trivalent, preservative 1 kaden Oconnell NP Attn: Accounting,[address] [facility], [place], [address], [place] [facility] 06/21/2024 15:24:00 Td (adult), 2 Lf tetanus toxoid, preservative free, adsorbed 9 completed KAILEE Oconnell NP Attn: Accounting,[address] [facility], [place], [address], [place] [facility] 06/21/2024 15:24:01 Hep B, adult 7 kaden Oconnell NP Attn: Accounting,[address] [facility], [place], [address], [place] [facility] 06/21/2024 15:24:01 Hep B, adult 7 kaden Oconnell NP Attn: Accounting,[address] [facility], [place], [address], [place] [facility] 06/21/2024 15:24:01 meningococcal MCV4P 7 kaden Oconnell NP Attn: Accounting,[address] [facility], [place], [address], [place] [facility] 06/21/2024 15:24:01 DTaP 5 completed KAILEE Oconnell NP Attn: Accounting,[address] [facility], [place], [address], [place] [facility] 06/21/2024 15:24:01 Influenza, split virus, quadrivalent, PF 0 completed KAILEE Oconnell NP Attn: Accounting,[address] [facility], [place], [address], [place] [facility] 06/21/2024 15:24:01 Influenza, split virus, quadrivalent, PF 2 completed KAILEE Oconnell NP Attn: Accounting,[address] [facility], [place], [address], [place] [facility] 03/05/2022 14:05:54 Influenza, split virus, quadrivalent, PF 3 completed [place] - [facility] 01/21/2023 10:46:25 Influenza, split virus, trivalent, PF 4 completed KAILEE Oconnell NP Attn: Accounting,[address] [facility], [place], [address], [facility] 01/12/2024 13:38:34 Tdap 5 completed KAILEE Oconnell NP Attn: Accounting,[address] [facility], [place], [address], [facility] 06/21/2024 15:39:18 Past Encounters Encounter ID Performer Location Encounter Start Date Encounter Closed Date Diagnosis/Indication Diagnosis SNOMED-CT Code Diagnosis ICD10 Code Diagnosis Note [id number] KAILEE Oconnell NP [facility] [address] [facility] [place] [address] 02/19/2022 11:19:30 03/06/2022 20:48:40 Administration of influenza vaccine [id number] Z23 [id number] [facility] [address] [place] [address] 01/07/2023 14:31:06 01/15/2023 14:36:45 Administration of influenza vaccine [id number] Z23 [id number] MD [facility] [address] [place] [address] 09/29/2023 10:59:08 09/29/2023 11:35:08 Adult health examination 004408381 Z00.00 -Get lab work done as discussed. We will call you with the results-sa fety discussed with patient-Pt immunizati ons utd. he will return for flu shot-Will make eye apt. as he wears glasses-Di et and exercise discussed- Will make dental apt. Obesity 424344509 E66.8 [id number] Piyush Gibson MD [facility] [address] [place] [address] 01/12/2024 12:16:33 01/12/2024 12:54:47 Administration of influenza vaccine [id number] Z23 [id number] KAILEE Oconnell NP [facility] [address] [place] [address] 06/21/2024 13:53:39 06/21/2024 16:36:09 Adult health examination 714970303 Z00.00 -Get lab work done as discussed. We will call you with the results-sa fety discussed with patient-Pt immunizati ons utd.-Will make eye apt.-Diet and exercise discussed- Will make dental apt. Active or passive immunization 054993142 Z23 -Can give tylenol for fever or pain.-Can use cool washcloth to area Obesity 079708703 E66.9 Stress 82645185 Z73.3 -Different treatments discussed. Reports will continue [...] Ray Member ID Guarantor Name 07/05/2024 1 [facility] [id number] Trey Multani [id number] Trey Multani
--- NOTE | 2024-11-01 16:30 | WPDCARIOSTRE ---
Nuclear Stress Test INDICATIONS Indications: Chest pain PROCEDURE Procedure Performed: Myocardial Perf Spect-Multi Procedure: Patient exercised on a standard Taurus protocol and at peak exercise was injected with 30.8 mCi of cardiolyte. Multiple images were obtained. These are of good quality. There is no perfusion defects with stress imaging. A separate resting images were obtained after patient was injected with 10.0 mCi of cardiolyte. Multiple images were obtained. These are of good quality. There is no perfusion defects with rest imaging. CONCLUSION Conclusion: 1. Normal myocardial perfusion imaging demonstrating no perfusion defects with stress or rest imaging. 2. No reversible ischemia. 3. Left ventriculogram demonstrates normal measured ejection fraction of 57% with no wall motion abnormalities. 4. TID score 0.92 is not elevated.
== END 2024-11-01 10:40 | disposition home or self-care (01) ==
LOC: CHSIMG 10:42
PROVIDERS: PCP Internal Medicine; Visit Provider Internal Medicine
DX: R07.89 Other chest pain (principal); R94.31 Abnormal electrocardiogram [ECG] [EKG]
CPT/HCPCS: 78452; 93017; A9502

== ENCOUNTER 2024-11-23 13:42 | Outpatient (CLI) | payer OTHER, SELFPAY ==
--- NOTE | 2024-11-23 13:47 | ECHO_ITS ---
Patient Info Name: Trey Multani Age: 49 years : 1975 Gender: Male Ht: 74 in Wt: 254 lbs BSA: 2.48 m2 HR: 54 bpm BP: 127 / 53 mmHg Heart Rhythm: Bradycardia Technical Quality: Good Exam Date: 11/23/2024 2:12 PM Patient Status: unknown Admit Date: 11/23/2024 Exam Type: CA echo doppler color flow Complete two-dimensional, color flow and Doppler transthoracic echocardiogram is performed. Sky Line Yarder: Maryuri Avila Attending Provider: Jonathon Weeks MD Summary 1. Complete two-dimensional, color flow and Doppler transthoracic echocardiogram is performed. 2. Left ventricular chamber dimension is normal. 3. Left ventricular systolic function is normal, estimated at 60-65. 4. The left ventricular diastolic function is normal. 5. E/e' 4 is not elevated. 6. Left atrial chamber dimension is mildly enlarged. 7. There is mild tricuspid valve regurgitation. 8. No pulmonary hypertension, estimated pulmonary arterial systolic pressure is 30 mmHg. 9. There is trace pulmonic regurgitation. Left Ventricle E/e' 4 is not elevated. Left ventricular chamber dimension is normal. Left ventricular systolic function is normal, estimated at 60-65. The left ventricular diastolic function is normal. Right Ventricle Right ventricular chamber dimension is normal. Right ventricular systolic function is normal. Left Atria Left atrial chamber dimension is mildly enlarged. Right Atria Right atrial chamber dimension is normal. Aortic Valve The aortic valve is trileaflet. There is no aortic valve stenosis. There is no aortic valve regurgitation. Pulmonic Valve There is trace pulmonic regurgitation. Mitral Valve There is no mitral valve stenosis. There is no mitral valve regurgitation. Tricuspid Valve There is mild tricuspid valve regurgitation. No pulmonary hypertension, estimated pulmonary arterial systolic pressure is 30 mmHg. Pericardium/Pleural There is no pericardial effusion. Inferior Vena Cava Normal inferior vena cava with >50% collapse upon inspiration consistent with normal right atrial pressure, 5 mmHg. Aorta The aortic root size at the sinus of Valsalva is normal. Left Ventricular Outflow Tract Name Value Normal LVOT 2D LVOT Diameter 2.2 cm LVOT Doppler LVOT Peak Velocity 92 cm/s LVOT Peak Gradient 3 mmHg LVOT Mean Gradient 2 mmHg LVOT VTI 18 cm LVOT VTI/AV VTI Ratio 0.8 LVOT Stroke Volume 70 ml LVOT CO 3.3 l/min LVOT CI 1.3 l/min/m2 Pulmonic Valve Name Value Normal RVOT Doppler RVOT Peak Velocity 66 cm/s RVOT Peak Gradient 2 mmHg PV Doppler PV Peak Velocity 129 cm/s PV Peak Gradient 7 mmHg Mitral Valve Name Value Normal MV Diastolic Function MV E Peak Velocity 49 cm/s MV A Peak Velocity 36 cm/s MV E/A 1.4 MV Decel Time (PW) 248 ms MV Annular TDI MV E/e' (Septal) 4.7 MV E/e' (Lateral) 4.4 MV E/e' (Average) 4.6 Tricuspid Valve Name Value Normal TV Regurgitation Doppler TR Peak Velocity 248 cm/s TR Peak Gradient 18 mmHg Estimated PAP/RSVP RA Pressure 5 mmHg <=5 PA Systolic Pressure 30 mmHg <36 RV Systolic Pressure 30 mmHg <36 Aorta Name Value Normal Ascending Aorta Ao Root Diameter (MM) 3.6 cm Ao Root Diam Index (MM) 1.5 cm/m2 Aortic Valve Name Value Normal AV Doppler AV Peak Velocity 121 cm/s AV Peak Gradient 6 mmHg AV Mean Gradient 3 mmHg AV VTI 23 cm AV Area (Cont Eq VTI) 3.0 cm2 >=3.0 AV Area (Cont Eq Wolf) 2.9 cm2 AV DI (Wolf) 0.76 AV Regurgitation 2D LVOT Area 3.8 cm2 Ventricles Name Value Normal LV Dimensions 2D/MM IVS Diastolic Thickness (2D) 0.9 cm 0.6-1.0 LVID Diastole (2D) 5.7 cm 4.2-5.8 LVIW Diastolic Thickness (2D) 0.7 cm 0.6-1.0 LVID Systole (2D) 3.6 cm 2.5-4.0 LVOT Diameter 2.2 cm LV Mass (2D Cubed) 180.83 g 88.00-224.00 LV Mass Index (2D Cubed) 73 g/m2 49-115 Relative Wall Thickness (2D) 0.26 <=0.42 LV Fractional Shortening/Ejection Fraction 2D/MM LV Fractional Shortening (2D) 37 % 25-43 LV EF (2D Teichholz) 66 % LV Diastolic Volume (4C MOD) 111 ml LV EF (4C MOD) 65 % LV Diastolic Volume (2C MOD) 88 ml LV EF (2C MOD) 66 % LV Diastolic Volume (BP MOD) 102 ml 62-150 LV Diastolic Volume Index (BP MOD) 41 ml/m2 34-74 LV Systolic Volume (BP MOD) 34 ml 21-61 LV Systolic Volume Index (BP MOD) 14 ml/m2 11-31 LV EF (BP MOD) 66 % 52-72 LV Diastolic Length (4C) 8.6 cm LV Systolic Length (4C) 6.5 cm LV Stroke Volume (4C MOD) 72 ml Atria Name Value Normal LA Dimensions LA Dimension (MM) 4.1 cm 3.0-4.0 LA Volume (4C A-L) 74 ml LA Volume (BP A-L) 69 ml RA Dimensions RA Systolic Major [place] Length (4C) 5.9 cm 2.1-2.7 RA Area (4C) 19.0 cm2 <=18.0 Report Signatures
--- OUTSIDE RECORDS SUMMARY | 2024-11-23 13:58 | XMS_ITS | Clinical Summary ---
Author Organization [facility] Address [address] [place] [address] Care Team Providers Care Eye Care Professional Name Role Phone Paola Ordoñez Primary Care Provider [phone] Allergies Active Allergy Reactions Criticality Noted Date [...] eye, mild stage 11/04 Assessment & Plan (11/03/2024 10:15 PM CDT): S/p SLT OD Now on latan QHS OU Good response RTC 6 months OCT RNFL/GCC both eyes (OU), DFE Assessment & Plan (07/28/2024 10:21 PM CDT): status post (s/p) SLT right eye (OD) HVF 24-2 stable OU RNFL with mild gradual worsening of ing> sup RNFL thinning ? Effect of timolol Start latanoprost daily OD Has appointment with Dr. 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): Intraocular pressure (IOP) acceptable status post (s/p) [...] left eye 12/22/19 15 Assessment & Plan (11/03/2024 10:14 PM CDT): Returning for follow up after starting latan QHS OU Pt reports having a hard time taking at night, advised ok to take in the AM IOP with good response RTC 6 months with OCT RNFL/GCC OU Assessment & Plan (07/28/2024 10:20 PM CDT): [...] Encounters Date Type Department Care Team Description 11/03/2024 1:45 PM CDT Office Visit [facility] Ophthalmology [address] [facility] [place] [address] Jo Ann Witt MD Pigmentary glaucoma, right eye, mild stage (Primary Dx); Pigment dispersion syndrome of left eye 10/14/2024 Telephone [facility] Ophthalmology [address] [facility] [address], [address] [place] [address] Jo Ann Witt MD from Last 3 Months Surgical History Surgery Date Site/Laterality Comments AR UNLISTED PROCEDURE ABDOME N PERITONEUM & OMENTUM Hernia Repair - X2 (Added by Conv) Medical History Medical History Date Comments Anxiety disorder Anxiety - (Adde d by Conv) Family History Medical History Relation Name Comments Glaucoma Mother Family history of glaucoma - (Added by TW Conv) Macular degeneration Mother Family history of macular degeneration - (Added by Conv) Relation Name Status Comments Mother Social History Tobacco Use Types Packs/Day Years Used Date Smoking Tobacco: Never Sex and Gender Information Value Date Recorded Sex Assigned at Not on file Legal 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
== END 2024-11-23 13:43 | disposition home or self-care (01) ==
LOC: CHSIMG 13:44
PROVIDERS: PCP Internal Medicine; Visit Provider Internal Medicine
DX: R07.89 Other chest pain (principal); R94.31 Abnormal electrocardiogram [ECG] [EKG]
CPT/HCPCS: 93306